=== PATIENT | male | born 1970 | race Caucasian/White ===

== ENCOUNTER 2018-03-27 06:44 | Observation (INO) ==
[2018-03-27] MEDS ORDERED: Pantoprazole 80 MG in 0.9 % Sodium Chloride 50 ML IVPB ONE (07:00)
[2018-03-27] MEDS ORDERED: 0.9 % Sodium Chloride 1,000 ML IVC ONE (07:00)
[2018-03-27] MEDS ORDERED: Ondansetron 4 MG/2 ML VIAL IVP ONE (07:04)
--- NOTE | 2018-03-27 07:05 | Emergency Department Note ---
Disposition Clinical Impression: Drop in hemoglobin Nausea and vomiting Qualifiers: Vomiting type: unspecified Vomiting Intractability: non-intractable Qualified Code(s): R11.2 - Nausea with vomiting, unspecified Abdominal pain Qualifiers: Abdominal location: unspecified location Qualified Code(s): R10.9 - Unspecified abdominal pain Hematemesis Qualifiers: Nausea presence: with nausea Qualified Code(s): K92.0 - Hematemesis GI bleed Qualifiers: GI bleed type/associated pathology: unspecified gastrointestinal hemorrhage type Qualified Code(s): K92.2 - Gastrointestinal hemorrhage, unspecified Disposition: Admitted As Inpatient Condition: Fair Referrals: Lyndsey Walls [Primary Care Provider] - Time of Disposition: 09:28 General Adult HPI - General Chief complaint: ED Nausea/Vomiting/Diarrhea Stated complaint: vomiting blood Time Seen by Provider: 03/27/18 07:00 Source: patient, EMS Mode of arrival: EMS Limitations: no limitations Nursing Notes Reviewed: Yes Vital Signs Reviewed: Yes - History of Present Illness HPI Narrative: Patient is a 47-year-old male that presents emergency Department with vomiting. Patient's been ongoing for the past 2 weeks and was previously seen here in the emergency department yesterday. Patient states that then this morning he began vomiting up blood. Patient states that he vomited up a clot and then started vomiting bright red blood. Patient states that he is having diffuse abdominal pain and has not been eating or drinking. Patient states that any touching of the belly seems to make the pain worse. Nothing really seems to alleviate the patient's pain. Patient denies any history of alcohol consumption or liver disease. Patient also reports that he has lost about 30 pounds over the past 2 weeks. Pain Scale: 9 - Related Data Home Medications Medication Instructions Recorded Confirmed Albuterol Sulfate [Ventolin Hfa] 2 puff IH Q4H PRN 03/27/18 03/27/18 Aspirin [Aspirin] 81 mg PO DAILY 03/27/18 03/27/18 Fluticasone Propionate Nasal 2 spr NS DAILY 03/27/18 03/27/18 [Flonase] Ipratropium/Albuterol Sulfate 1 puff HE QID 03/27/18 03/27/18 [Combivent Respimat 20-100 Mcg] Isosorbide MONOnitrate (24 HR) 60 mg PO DAILY 03/27/18 03/27/18 [Imdur] Lisinopril [Zestril] 20 mg PO DAILY 03/27/18 03/27/18 Metformin HCl [Metformin HCl] 1,000 mg PO BID 03/27/18 03/27/18 Metoprolol Tartrate [Metoprolol 50 mg PO BID 03/27/18 03/27/18 Tartrate] Pregabalin [Lyrica] 200 mg PO TID 03/27/18 03/27/18 Simvastatin [Zocor] 20 mg PO HS 03/27/18 03/27/18 Terazosin HCl [Terazosin HCl] 10 mg PO DAILY 03/27/18 03/27/18 Tizanidine HCl [Tizanidine HCl] 4 mg PO TID 03/27/18 03/27/18 Previous Rx's Medication Instructions Recorded Ondansetron ODT [Zofran ODT] 4 mg PO Q4H #12 tab.rapdis 03/26/18 Promethazine [Phenergan] 25 mg PO Q8HR #20 tablet 03/26/18 Allergies Allergy/AdvReac Type Severity Reaction Status Date / Time celecoxib [From Celebrex] Allergy Swelling Verified 03/27/18 10:04 of Lip/Tongue/Throat gabapentin Allergy Difficulty Verified 03/27/18 10:04 Breathing lidocaine Allergy Difficulty Verified 03/27/18 10:04 Breathing Methadone Allergy Swelling Verified 03/27/18 10:04 of Lip/Tongue/Throat tramadol Allergy Difficulty Verified 03/27/18 10:04 Breathing acetaminophen AdvReac Vomiting Verified 03/27/18 10:04 [From Tylenol-Codeine #3] codeine AdvReac Vomiting Verified 03/27/18 10:04 [From Tylenol-Codeine #3] hydrocodone [From Vicodin] AdvReac Vomiting Verified 03/27/18 10:04 ibuprofen AdvReac Vomiting Verified 03/27/18 10:04 morphine AdvReac Vomiting Verified 03/27/18 10:04 Oxycodone [From OxyContin] AdvReac Vomiting Verified 03/27/18 10:04 pregabalin [From Lyrica] AdvReac Confusion Verified 03/27/18 10:04 All systems ED: reviewed and negative except as stated. Cardiovascular: Denies: chest pain Respiratory: Denies: dyspnea Gastrointestinal: Reports: abdominal pain, nausea, vomiting, hematemesis. Denies: diarrhea, hematochezia Past Medical History - Past Medical History Medical history: Reports: COPD, myocardial infarction Psychiatric history: Reports: no psych history - Social History Smoking Status: Former smoker Smokeless Tobacco Status: No Alcohol use: Reports: none Drug use: Reports: none Physical Exam - General Limitations: no limitations General appearance: alert, in no apparent distress - Head Head exam: atraumatic, normocephalic - Eye Eye exam: Present: normal appearance, EOMI - Neck Neck exam: Present: normal inspection, full ROM, trachea midline - Respiratory Respiratory exam: Present: normal lung sounds bilaterally. Absent: respiratory distress, wheezes - Cardiovascular Cardiovascular exam: Present: regular rate, normal rhythm, normal heart sounds, +S1, +S2 - Abdominal Exam Abdominal exam: Present: soft, tenderness, guarding, normal bowel sounds, other (Abdomen is firm ). Absent: distention, rebound Abdominal tenderness: Present: diffuse, moderate - Neurological Exam Neurological exam: Present: alert, oriented X3 - Psychiatric Psychiatric exam: Present: normal affect, normal mood - Skin Skin exam: Present: warm, dry, intact Course Vital Signs Temperature 98.5 F 03/27/18 06:47 Pulse Rate 79 03/27/18 06:47 Respiratory Rate 20 03/27/18 06:47 Blood Pressure 158/97 03/27/18 06:47 O2 Sat by Pulse Oximetry 99 03/27/18 06:47 Temperature 98.5 F 03/27/18 06:47 Pulse Rate 77 03/27/18 09:45 Respiratory Rate 20 03/27/18 09:45 Blood Pressure 143/84 03/27/18 09:45 O2 Sat by Pulse Oximetry 98 03/27/18 09:45 Oxygen Delivery Oxygen Delivery Room Air Medical Decision Making - MDM Narrative Medical decision making narrative: The patient presenting to the emergency department with possible upper GI bleed and vomiting blood we will obtain CBC, BMP, type and screen, EKG patient will be given Protonix and Zofran here in the emergency department. Ct scan of the abdomen and pelvis will be obtained. CT scan showed trace fluid within the pelvis which is nonspecific but no other acute intra-abdominal pathologies identified at this time. Patient did have a 1-1/2 g drop in his hemoglobin since yesterday. Current hemoglobin is 13.6. Patient vital signs are stable while here in the emergency department. Due to the patient having reports of vomiting and the continued abdominal pain and the drop in his hemoglobin and feel it is important that the patient be admitted to the hospital for further evaluation and management. I called and spoke with the admitting hospitalist Dr. Stover and he has accepted the patient to their service. Patient be admitted to the hospital this time for further evaluation and management. - Medical Records Medical records reviewed: Yes I reviewed the patient's medical records. - Lab Data Lab results reviewed: Yes I reviewed the patient's lab results. Result diagrams: 03/27/18 07:30 03/27/18 07:30 Lab Results 03/27/18 03/27/18 03/27/18 Range/Units 07:30 07:30 07:30 WBC 8.6 (4.3-11.1) K/mcL RBC 4.51 (4.19-5.50) M/mcL Hgb 13.6 D (12.9-16.9) g/dL Hct 39.5 (37.5-50.1) % MCV 87.6 (83.0-100.0) fL MCH 30.2 (28.0-33.3) pg MCHC 34.4 (31.6-35.5) g/dL RDW 13.4 (11.5-14.5) % Plt Count 235 (140-400) K/mcL MPV 10.1 (9.4-12.4) fL Immature Gran % 0.2 (0-4) % Seg Neutrophils % 59.0 % Lymphocytes % 29.1 % Monocytes % 9.6 % Eosinophils % 1.4 % Basophils % 0.7 % Neutrophils # 5.1 (1.6-8.9) K/mcL Lymphocytes # 2.5 (0.6-4.6) K/mcL Monocytes # 0.8 (0.0-1.3) K/mcL Eosinophils # 0.1 (0.0-0.6) K/mcL Basophils # 0.1 (0.0-0.2) K/mcL PT 12.1 (9.4-12.1) Seconds INR 1.1 APTT 30.7 (26.0-36.0) Seconds Sodium 139 (136-145) mEq/L Potassium 3.2 L (3.5-5.1) mEq/L Chloride 105 (98-107) mEq/L Carbon Dioxide 25 (23-29) mEq/L BUN 10 (6-20) mg/dL Creatinine 1.00 (0.70-1.30) mg/dL Est GFR ( Amer) > 60 (> 60) Est GFR (Non-Af Amer) > 60 (> 60) BUN/Creatinine Ratio 10 (6-26) Glucose 106 H (70-105) mg/dL Calculated Osmolality 287 (280-300) Calcium 9.1 (8.6-10.3) mg/dL Total Bilirubin 0.6 (0.3-1.0) mg/dL AST 16 (13-39) Units/L ALT 12 (7-52) Units/L Alkaline Phosphatase 71 (34-104) Units/L Troponin I < 0.03 (< 0.04) ng/mL Serum Total Protein 6.3 L (6.4-8.9) g/dL Albumin 4.0 (3.5-5.7) g/dL Globulin 2.3 L (2.4-3.5) g/dL Albumin/Globulin Ratio 1.7 (1.1-2.2) Blood Type Antibody Screen 03/27/18 Range/Units 07:30 WBC (4.3-11.1) K/mcL RBC (4.19-5.50) M/mcL Hgb (12.9-16.9) g/dL Hct (37.5-50.1) % MCV (83.0-100.0) fL MCH (28.0-33.3) pg MCHC (31.6-35.5) g/dL RDW (11.5-14.5) % Plt Count (140-400) K/mcL MPV (9.4-12.4) fL Immature Gran % (0-4) % Seg Neutrophils % % Lymphocytes % % Monocytes % % Eosinophils % % Basophils % % Neutrophils # (1.6-8.9) K/mcL Lymphocytes # (0.6-4.6) K/mcL Monocytes # (0.0-1.3) K/mcL Eosinophils # (0.0-0.6) K/mcL Basophils # (0.0-0.2) K/mcL PT (9.4-12.1) Seconds INR APTT (26.0-36.0) Seconds Sodium (136-145) mEq/L Potassium (3.5-5.1) mEq/L Chloride (98-107) mEq/L Carbon Dioxide (23-29) mEq/L BUN (6-20) mg/dL Creatinine (0.70-1.30) mg/dL Est GFR ( Amer) (> 60) Est GFR (Non-Af Amer) (> 60) BUN/Creatinine Ratio (6-26) Glucose (70-105) mg/dL Calculated Osmolality (280-300) Calcium (8.6-10.3) mg/dL Total Bilirubin (0.3-1.0) mg/dL AST (13-39) Units/L ALT (7-52) Units/L Alkaline Phosphatase (34-104) Units/L Troponin I (< 0.04) ng/mL Serum Total Protein (6.4-8.9) g/dL Albumin (3.5-5.7) g/dL Globulin (2.4-3.5) g/dL Albumin/Globulin Ratio (1.1-2.2) Blood Type A NEGATIVE Antibody Screen NEGATIVE - Radiology Data Radiology results reviewed: Yes I reviewed the patient's radiology results. Abdomen/Pelvis CT 03/27/18 07:22 IMPRESSION: 1. Small amount of free fluid in the pelvis which is not expected in a male patient. This is nonspecific, but could conceivably be reactive due to underlying enteritis. 2. Otherwise, no acute abdominal or pelvic abnormality. Normal appendix. 3. Diverticulosis without associated inflammatory changes. D/ / 03/27/2018 08:43:29 Claire Roa MD / maricel Interpreting Provider: Claire Roa MD - EKG Data EKG #1 EKG attestation: Yes I reviewed and interpreted this EKG. EKG results narrative: EKG shows a sinus rhythm at a rate of 77 bpm, ND interval of 122, QRS duration 105, QTC of 452 with a normal axis. There is no evidence of STEMI on EKG. This is compared to previous EKG on 02/05/18.
--- NOTE | 2018-03-27 07:22 | Emergency Department Note ---
Disposition Clinical Impression: Nausea and vomiting, Abdominal pain, Hematemesis, Drop in hemoglobin, GI bleed Disposition: Admitted As Inpatient Condition: Fair General Adult HPI - General Chief complaint: ED Nausea/Vomiting/Diarrhea Stated complaint: vomiting blood Time Seen by Provider: 03/27/18 07:00 Source: patient, EMS Mode of arrival: EMS Limitations: no limitations - History of Present Illness Pain Scale: 9 - Related Data Home Medications Medication Instructions Recorded Confirmed Albuterol Sulfate [Ventolin Hfa] 2 puff IH Q4H PRN 03/27/18 03/27/18 Aspirin [Aspirin] 81 mg PO DAILY 03/27/18 03/27/18 Fluticasone Propionate Nasal 2 spr NS DAILY 03/27/18 03/27/18 [Flonase] Ipratropium/Albuterol Sulfate 1 puff HE QID 03/27/18 03/27/18 [Combivent Respimat 20-100 Mcg] Isosorbide MONOnitrate (24 HR) 60 mg PO DAILY 03/27/18 03/27/18 [Imdur] Lisinopril [Zestril] 20 mg PO DAILY 03/27/18 03/27/18 Metformin HCl [Metformin HCl] 1,000 mg PO BID 03/27/18 03/27/18 Metoprolol Tartrate [Metoprolol 50 mg PO BID 03/27/18 03/27/18 Tartrate] Pregabalin [Lyrica] 200 mg PO TID 03/27/18 03/27/18 Simvastatin [Zocor] 20 mg PO HS 03/27/18 03/27/18 Terazosin HCl [Terazosin HCl] 10 mg PO DAILY 03/27/18 03/27/18 Tizanidine HCl [Tizanidine HCl] 4 mg PO TID 03/27/18 03/27/18 Previous Rx's Medication Instructions Recorded Ondansetron ODT [Zofran ODT] 4 mg PO Q4H #12 tab.rapdis 03/26/18 Promethazine [Phenergan] 25 mg PO Q8HR #20 tablet 03/26/18 Allergies Allergy/AdvReac Type Severity Reaction Status Date / Time celecoxib [From Celebrex] Allergy Swelling Verified 03/27/18 10:04 of Lip/Tongue/Throat gabapentin Allergy Difficulty Verified 03/27/18 10:04 Breathing lidocaine Allergy Difficulty Verified 03/27/18 10:04 Breathing Methadone Allergy Swelling Verified 03/27/18 10:04 of Lip/Tongue/Throat tramadol Allergy Difficulty Verified 03/27/18 10:04 Breathing acetaminophen AdvReac Vomiting Verified 03/27/18 10:04 [From Tylenol-Codeine #3] codeine AdvReac Vomiting Verified 03/27/18 10:04 [From Tylenol-Codeine #3] hydrocodone [From Vicodin] AdvReac Vomiting Verified 03/27/18 10:04 ibuprofen AdvReac Vomiting Verified 03/27/18 10:04 morphine AdvReac Vomiting Verified 03/27/18 10:04 Oxycodone [From OxyContin] AdvReac Vomiting Verified 03/27/18 10:04 pregabalin [From Lyrica] AdvReac Confusion Verified 03/27/18 10:04 Cardiovascular: Denies: chest pain Respiratory: Denies: dyspnea Gastrointestinal: Reports: abdominal pain, nausea, vomiting, hematemesis. Denies: diarrhea, hematochezia Past Medical History - Past Medical History Medical history: Reports: COPD, myocardial infarction Psychiatric history: Reports: no psych history - Social History Smoking Status: Former smoker Smokeless Tobacco Status: No Alcohol use: Reports: none Drug use: Reports: none Physical Exam - General Limitations: no limitations General appearance: alert, in no apparent distress Course Vital Signs Temperature 98.5 F 03/27/18 06:47 Pulse Rate 79 03/27/18 06:47 Respiratory Rate 20 03/27/18 06:47 Blood Pressure 158/97 03/27/18 06:47 O2 Sat by Pulse Oximetry 99 03/27/18 06:47 Temperature 98.5 F 03/27/18 06:47 Pulse Rate 77 03/27/18 09:45 Respiratory Rate 20 03/27/18 09:45 Blood Pressure 143/84 03/27/18 09:45 O2 Sat by Pulse Oximetry 98 03/27/18 09:45 Oxygen Delivery Oxygen Delivery Room Air Medical Decision Making - Lab Data Result diagrams: 03/27/18 07:30 03/27/18 07:30 Lab Results 03/27/18 03/27/18 03/27/18 Range/Units 07:30 07:30 07:30 WBC 8.6 (4.3-11.1) K/mcL RBC 4.51 (4.19-5.50) M/mcL Hgb 13.6 D (12.9-16.9) g/dL Hct 39.5 (37.5-50.1) % MCV 87.6 (83.0-100.0) fL MCH 30.2 (28.0-33.3) pg MCHC 34.4 (31.6-35.5) g/dL RDW 13.4 (11.5-14.5) % Plt Count 235 (140-400) K/mcL MPV 10.1 (9.4-12.4) fL Immature Gran % 0.2 (0-4) % Seg Neutrophils % 59.0 % Lymphocytes % 29.1 % Monocytes % 9.6 % Eosinophils % 1.4 % Basophils % 0.7 % Neutrophils # 5.1 (1.6-8.9) K/mcL Lymphocytes # 2.5 (0.6-4.6) K/mcL Monocytes # 0.8 (0.0-1.3) K/mcL Eosinophils # 0.1 (0.0-0.6) K/mcL Basophils # 0.1 (0.0-0.2) K/mcL PT 12.1 (9.4-12.1) Seconds INR 1.1 APTT 30.7 (26.0-36.0) Seconds Sodium 139 (136-145) mEq/L Potassium 3.2 L (3.5-5.1) mEq/L Chloride 105 (98-107) mEq/L Carbon Dioxide 25 (23-29) mEq/L BUN 10 (6-20) mg/dL Creatinine 1.00 (0.70-1.30) mg/dL Est GFR ( Amer) > 60 (> 60) Est GFR (Non-Af Amer) > 60 (> 60) BUN/Creatinine Ratio 10 (6-26) Glucose 106 H (70-105) mg/dL Calculated Osmolality 287 (280-300) Calcium 9.1 (8.6-10.3) mg/dL Total Bilirubin 0.6 (0.3-1.0) mg/dL AST 16 (13-39) Units/L ALT 12 (7-52) Units/L Alkaline Phosphatase 71 (34-104) Units/L Troponin I < 0.03 (< 0.04) ng/mL Serum Total Protein 6.3 L (6.4-8.9) g/dL Albumin 4.0 (3.5-5.7) g/dL Globulin 2.3 L (2.4-3.5) g/dL Albumin/Globulin Ratio 1.7 (1.1-2.2) Blood Type Antibody Screen 03/27/18 Range/Units 07:30 WBC (4.3-11.1) K/mcL RBC (4.19-5.50) M/mcL Hgb (12.9-16.9) g/dL Hct (37.5-50.1) % MCV (83.0-100.0) fL MCH (28.0-33.3) pg MCHC (31.6-35.5) g/dL RDW (11.5-14.5) % Plt Count (140-400) K/mcL MPV (9.4-12.4) fL Immature Gran % (0-4) % Seg Neutrophils % % Lymphocytes % % Monocytes % % Eosinophils % % Basophils % % Neutrophils # (1.6-8.9) K/mcL Lymphocytes # (0.6-4.6) K/mcL Monocytes # (0.0-1.3) K/mcL Eosinophils # (0.0-0.6) K/mcL Basophils # (0.0-0.2) K/mcL PT (9.4-12.1) Seconds INR APTT (26.0-36.0) Seconds Sodium (136-145) mEq/L Potassium (3.5-5.1) mEq/L Chloride (98-107) mEq/L Carbon Dioxide (23-29) mEq/L BUN (6-20) mg/dL Creatinine (0.70-1.30) mg/dL Est GFR ( Amer) (> 60) Est GFR (Non-Af Amer) (> 60) BUN/Creatinine Ratio (6-26) Glucose (70-105) mg/dL Calculated Osmolality (280-300) Calcium (8.6-10.3) mg/dL Total Bilirubin (0.3-1.0) mg/dL AST (13-39) Units/L ALT (7-52) Units/L Alkaline Phosphatase (34-104) Units/L Troponin I (< 0.04) ng/mL Serum Total Protein (6.4-8.9) g/dL Albumin (3.5-5.7) g/dL Globulin (2.4-3.5) g/dL Albumin/Globulin Ratio (1.1-2.2) Blood Type A NEGATIVE Antibody Screen NEGATIVE Attestation Statement - Attestation Attestation: I examined this patient and my medical decision-making was reviewed with the Resident Physician. I agree with the documented findings, disposition and treatment plan as described except to the extent set forth below. Patient presents to the ED with chief complaint of vomiting blood. Patient vomited a clot followed by bright red blood. He has been having problems with persistent vomiting for the past couple weeks. No history of similar. Was seen here yesterday and had a negative workup including labs and a CTA. He has continued to vomit. On examination he has upper abdominal tenderness and guarding. Plan. Reviewed his normal labs from yesterday. His CT is negative for any vascular pathology. Is having persistent, worsening symptoms. His symptoms seem epigastric. We will repeat CT as we have concern for a referral to gastric ulcer. Meds fluids and reevaluate. Patient with no further vomiting. He was dropped a gram and a half since yesterday. He is given IV Protonix. Will admit.
[2018-03-27] MEDS ORDERED: *HR* FentaNYL (PF) 100 MCG/2 ML VIAL IVP ONE ×2 (07:39→17:34)
[2018-03-27 07:55] LABS: Basophils # 0.1 K/mcL (0.0-0.2); Basophils % 0.7 %; Eosinophils # 0.1 K/mcL (0.0-0.6); Eosinophils % 1.4 %; Hematocrit 39.5 % (37.5-50.1); Hemoglobin 13.6 g/dL (12.9-16.9); Immature Granulocytes % 0.2 % (0-4); Lymphocytes # 2.5 K/mcL (0.6-4.6); Lymphocytes % 29.1 %; Mean Corpuscular HGB Conc 34.4 g/dL (31.6-35.5); Mean Corpuscular Hemoglobin 30.2 pg (28.0-33.3); Mean Corpuscular Volume 87.6 fL (83.0-100.0); Mean Platelet Volume 10.1 fL (9.4-12.4); Monocytes # 0.8 K/mcL (0.0-1.3); Monocytes % 9.6 %; Neutrophils # 5.1 K/mcL (1.6-8.9); Platelet Count 235 K/mcL (140-400); Red Blood Count 4.51 M/mcL (4.19-5.50); Red Cell Distribution Width 13.4 % (11.5-14.5)
[2018-03-27 07:58] LABS: Alanine Aminotransferase 12 Units/L (7-52); Albumin/Globulin Ratio 1.7 (1.1-2.2); Alkaline Phosphatase 71 Units/L (34-104); Aspartate Amino Transferase 16 Units/L (13-39); BUN/Creatinine Ratio 10 (6-26); Bilirubin,Total 0.6 mg/dL (0.3-1.0); Blood Urea Nitrogen 10 mg/dL (6-20); Calcium 9.1 mg/dL (8.6-10.3); Carbon Dioxide 25 mEq/L (23-29); Chloride 105 mEq/L (98-107); Globulin 2.3 g/dL (2.4-3.5); Glucose 106 mg/dL (70-105); Osmolality,Calculated 287 (280-300); Potassium 3.2 mEq/L (3.5-5.1); Sodium 139 mEq/L (136-145); Total Protein 6.3 g/dL (6.4-8.9); eGFR For Non-African Americans > 60 (> 60)
[2018-03-27 08:05] LABS: INR 1.1; Prothrombin Time 12.1 Seconds (9.4-12.1); Troponin I < 0.03 ng/mL (< 0.04)
[2018-03-27 08:07] LABS: Activated Partial Thrombo Time 30.7 Seconds (26.0-36.0)
[2018-03-27] MEDS ORDERED: Naloxone 0.4 MG/ML INJ IVP PRN (10:21)
--- NOTE | 2018-03-27 10:54 | Internal Med History&Physical ---
Date of Encounter: 03/27/18 Time of Encounter: 10:49 Internal Medicine - H&P: HPI Chief complaint: Vomiting of blood Admitted From: Home Plans for Post Hospital Care: Home History of present illness: Mr. Alcantara is a 47 year old male with a past medical history of coronary artery disease, multiple MIs in the past last one being last year, history of stroke in 2013 with residual left-sided weakness in upper and lower extremities, ex- smoker who smoked 30 pack years from age 16 until age 47. Who presents with 2 weeks of nausea and vomiting and inability to keep anything down and more so having 2 episodes of upper GI bleed since yesterday. Patient states that his symptoms started roughly about 2 weeks ago and were not preceded by any sick contacts. He feels that he had a accidental fall about 3 days prior to all of the starting he is not sure if he hit his head at that point. He states he has many seizure episodes and this was during one of his seizure event that he was not able to hold onto a rail and fell backwards hitting his head. He is not sure that he ever got a head CT done but he denies getting any worsening headaches, new visual changes, new weakness or tingling or numbness in any part of his body. He does have an old stroke and residual deficits are nothing new neurologically has happened in the last 2 weeks. He denies any dark stools over the last 2-3 weeks but does have persistent nausea and vomiting. He has not been able to keep anything down and has lost about 30 pounds according to his history over the last 3 weeks time. He was incidentally seen in the ER 2 days ago but has not had resolution of his symptoms. He states that he was prescribed Zofran which has only helped partially and as soon as the effect wears off he starts throwing up again. Yesterday he had one clot that he vomited towards the end of the night and then this morning had some fresh bleeding when he tried to vomit. No associated diarrhea or constipation. Denies any fevers or chills and no chest pain or shortness of breath. He is being placed into observation status for further evaluation of his upper GI bleed. Past Med Surg Social Fam HX - Past Medical History Medical history: COPD, myocardial infarction Psychiatric history: no psych history - Past Surgical History Additional surgical history: facial reconstruction, removal of crushed rt testicle - Social History Smoking Status: Former smoker (Patient has a [id number] smoking history quit 3 weeks ago) Smokeless Tobacco Status: No Alcohol use: none Drug use: none - Additional Family History Additional family history: He is adopted and does not know his family history in detail. Internal Medicine - H&P: Meds Ondansetron ODT [Zofran ODT] 4 mg PO Q4H #12 tab.rapdis 03/26/18 [Rx] Promethazine [Phenergan] 25 mg PO Q8HR #20 tablet 03/26/18 [Rx] Albuterol Sulfate [Ventolin Hfa] 2 puff IH Q4H PRN 03/27/18 [History] Aspirin [Aspirin] 81 mg PO DAILY 03/27/18 [History] Fluticasone Propionate Nasal [Flonase] 2 spr NS DAILY 03/27/18 [History] Ipratropium/Albuterol Sulfate [Combivent Respimat 20-100 Mcg] 1 puff HE QID [History] Isosorbide MONOnitrate (24 HR) [Imdur] 60 mg PO DAILY 03/27/18 [History] Lisinopril [Zestril] 20 mg PO DAILY 03/27/18 [History] Metformin HCl [Metformin HCl] 1,000 mg PO BID 03/27/18 [History] Metoprolol Tartrate [Metoprolol Tartrate] 50 mg PO BID 03/27/18 [History] Pregabalin [Lyrica] 200 mg PO TID 03/27/18 [History] Simvastatin [Zocor] 20 mg PO HS 03/27/18 [History] Terazosin HCl [Terazosin HCl] 10 mg PO DAILY 03/27/18 [History] Tizanidine HCl [Tizanidine HCl] 4 mg PO TID 03/27/18 [History] 3 Allergy/AdvReac Type Severity Reaction Status Date / Time celecoxib [From Celebrex] Allergy Swelling Verified 03/27/18 10:04 of Lip/Tongue/Throat gabapentin Allergy Difficulty Verified 03/27/18 10:04 Breathing lidocaine Allergy Difficulty Verified 03/27/18 10:04 Breathing Methadone Allergy Swelling Verified 03/27/18 10:04 of Lip/Tongue/Throat tramadol Allergy Difficulty Verified 03/27/18 10:04 Breathing acetaminophen AdvReac Vomiting Verified 03/27/18 10:04 [From Tylenol-Codeine #3] codeine AdvReac Vomiting Verified 03/27/18 10:04 [From Tylenol-Codeine #3] hydrocodone [From Vicodin] AdvReac Vomiting Verified 03/27/18 10:04 ibuprofen AdvReac Vomiting Verified 03/27/18 10:04 morphine AdvReac Vomiting Verified 03/27/18 10:04 Oxycodone [From OxyContin] AdvReac Vomiting Verified 03/27/18 10:04 pregabalin [From Lyrica] AdvReac Confusion Verified 03/27/18 10:04 All Systems PM: A 10-system review of systems was performed and is negative for pertinent findings except as documented above in the HPI. - Constitutional Vitals: Temp Pulse Resp BP Pulse Ox 98.5 F 77 20 143/84 98 03/27/18 06:47 03/27/18 09:45 03/27/18 09:45 03/27/18 09:45 03/27/18 09:45 Exam: GENERAL: Alert, no distress, cooperative EYES: Strabismus, PERRLA, EOMI EARS: External ears normal, canals clear OROPHARYNX: Lips, mucosa, and tongue normal. Teeth and gums normal. Oropharynx normal. NECK: No jugulovenous distention, No carotid bruits, Carotid pulse normal contour, Supple LUNGS: Lungs clear to auscultation, Good diaphragmatic excursion CARDIAC: Normal S1 and S2; no rubs, murmurs, or gallops ABDOMEN: Abdomen soft, mild tenderness to palpation diffusely but no guarding or rigidity, BS normal, No masses or organomegaly EXTREMITIES: Extremities normal, no deformities, edema, clubbing or skin discoloration. Good capillary refill., No ulcers NEURO: Weakness in the left upper and lower extremity. Power was 3/5 in both upper and lower left extremities power is 5 x 5 in the right upper and lower extremity PULSES: 2+ radial, 2+ carotid Rest of the exam is non contributory Internal Med - H&P Results - Labs CBC & Chem 7: 03/27/18 07:30 03/27/18 07:30 - EKG Data Prior EKG available for review: no Interpretation IM: normal EKG EKG comments: 03/27/18 10:56 Reviewed by me - Assessment and plan (1) GI bleed Current Visit: Yes Status: Acute Assessment and plan: Patient presents with vomiting up clots as well as fresh blood at the tail end of a two-week nausea vomiting phase. Differential diagnoses includes Bianca-Guardado tear, peptic ulcer disease, GERD versus a upper GI malignancy given he has had significant weight loss Patient also fell about 3 days preceding to the start of his symptoms and that does raise concern for an intracranial increase of pressure which could preclude nonstop vomiting-however on clinical examination he does not have any worsening neuro deficits, on history he does not complain of headaches or visual symptoms, he does have some old neurological deficits which are not new and has met threshold to pursue this diagnosis is higher. He has already received a bolus of Protonix in the ER. I will continue twice a day IV PPI and keep the patient nothing by mouth. He will be placed on telemetry monitoring and we will check serial H&H. He will be taken down for endoscopy very soon because of already discussed it with the consulting psychiatrist on-call Endoscopy today and for the results to follow. If endoscopy is not suggestive we may consider doing a head CT Hemodynamically right now he appears stable and we will continue to monitor closely Plan discussed with the nursing and pharmacy in detail Qualifiers: GI bleed type/associated pathology: gastrointestinal hemorrhage with hematemesis Qualified Code(s): K92.0 - Hematemesis (2) History of coronary artery disease Current Visit: Yes Status: Acute Assessment and plan: Patient used to be on aspirin which he has been taking every single day. I will hold the aspirin for now and continue the rest of his home medications. Waiting for pharmacy to reconcile (3) Nausea and vomiting Current Visit: Yes Status: Acute Assessment and plan: Continue Zofran every 6 hours IV when necessary for nausea and vomiting. For now he will be nothing by mouth but will resume his diet once he has had a scope Qualifiers: Vomiting type: unspecified Vomiting Intractability: intractable Qualified Code(s): R11.2 - Nausea with vomiting, unspecified (4) DVT prophylaxis Current Visit: Yes Status: Acute Assessment and plan: EPCD in place - Time Spent With Patient Total time spent is greater than 50% in coordination of care (as documented) at patient's floor/unit and/or counseling patient: Greater than 35 minutes
--- NOTE | 2018-03-27 11:20 | Gastroenterology Consult Note ---
<Leo Holt - Last Filed: 03/27/18 11:46> Date of Encounter: 03/27/18 Time of Encounter: 11:15 - Assessment and plan (1) Abdominal pain Current Visit: Yes Status: Acute Assessment and plan: Likely secondary to wretching secondary to likely viral gastritis - Less likely etiologies of esophageal stricture, adhesions given multiple abdomen surgeries, mass, AAA or perforation unlikely given CT scan. - CT scan performed in emergency room shows free fluid in the pelvis which is abnormal however may be associated with enteritis. Otherwise unremarkable. - Diffusely tender on exam with voluntary guarding. - Sharp nature and exacerbation with movement and wretching point to possible facial component and inflammation. - Associated nausea and vomiting as below. Hematemasis as below. - Weight loss possibly secondary to decreased oral intake, however cannot rule out malignancy contribution. Plan - Supportive care per primary team with pain control and anti-emetics - EGD scheduled for this afternoon - IVF while patient is NPO - Further recommendations pending results of EGD - Further discussion with Dr. Jolley Qualifiers: Abdominal location: generalized Qualified Code(s): R10.84 - Generalized abdominal pain (2) Nausea and vomiting Current Visit: Yes Status: Acute Assessment and plan: - Possible etiologies include most likely viral gastritis vs gastroparesis vs mass effect - hematemasis is likely secondary to casey ayala given history of vomiting and wretching as per HPI - patient reports resolution of symptoms since presenting to ED with administration of Zofran - Afebrile, no WBC elevation on presentation. Non septic presentation Plan - Continue supportive care with antiemetics - Will plan for EGD this afternoon for diagnostic purposes Qualifiers: Vomiting type: unspecified Vomiting Intractability: intractable Qualified Code(s): R11.2 - Nausea with vomiting, unspecified (3) Hematemesis Current Visit: Yes Status: Acute Assessment and plan: - As above - likely secondary to casey ayala tear - No evidence of free air on CT - H/H stable at 13.6/39.5, coagulation studies wnl. Hgb of 15.1 yesterday at ED visit. - No reported melena or hematochezia - Started this morning. hemodynamically stable. - No further episodes of vomiting since presentation. Plan - Plan for EGD this afternoon - Patient reports not having eat in 3 days - Continue to monitor for signs of further bleed. Qualifiers: Nausea presence: with nausea Qualified Code(s): K92.0 - Hematemesis (4) GI bleed Current Visit: Yes Status: Acute Assessment and plan: - As above, likely secondary to casey ayala - Denies previous episodes of bleeding. - Takes home aspirin but hasn't been able to keep medications down in 2 days - History of multiple VA and CVA. Benefits outweigh risk after bleed under control. Unlikely contributing to bleed. - H/H stable, continue to monitor. Qualifiers: GI bleed type/associated pathology: gastrointestinal hemorrhage with hematemesis Qualified Code(s): K92.0 - Hematemesis - Time Spent With Patient Total time spent is greater than 50% in coordination of care (as documented) at patient's floor/unit and/or counseling patient: GI History of Present Illness - Data of Consult Consult date: 03/27/18 Requesting Physician: Rayray Stover MD - Consult Narrative Reason for consult: GI bleed, n/v History of present illness: Mr. Alcantara is a 47 year old male with past medical history of COPD, CAD with myocardial infarction 5, CVA presents to emergency room with complaint of nausea and vomiting 3 weeks. Patient states it was sudden onset and he has been continuously retching over this time period. Emesis contains food contents initially but now as he has been unable to keep down any food, it is turned in a dry retching. He also reports hematemesis starting this morning while retching. He states that approximately he has vomited one cup of blood during this time. Also admits to associated medially located abdominal pain extending from the epigastric suprapubic region. This pain does not move and he describes it as sharp in nature with knives. He states the pain is present constantly and is exacerbated with retching and deep breaths with no relieving factors except for absence of vomiting and no movement. He denies any symptoms of fevers, chills, sick contacts, chest pain, shortness of breath. He states his last bowel movement was over a week ago which she associates with decreased oral intake but it was normal at that time without any evidence of melena or hematochezia. He has never experienced any episodes like this in the past. He denies any previous colonoscopies or EGDs. He also reports a 30 pound weight loss in the last 3 weeks however does admit that he has not been eating in that time. Also admits to weakness and dizziness exacerbated with rising which she also associates with decreased oral intake. Past medical history as above with COPD, CAD, CVA Past surgical history significant for 13 abdominal surgeries over the period of 6 years in the early s secondary to trauma in the [employer]. Social history includes former smoker having quit one month ago. Previously one pack per day 30 years. Denies alcohol use or recreational drugs Family history unknown to patient as he is adopted. Workup thus far on presentation includes significant lab results of hypokalemia at 3.2, labs otherwise within normal limits. Vital signs significant for mild hypertension in the 150s over 90s. Abdominal CT scan performed in emergency department shows trace amount of pelvic free fluid which may be associated with gastritis, remainder of imaging is unremarkable. Gastroenterology was consulted for suspicion of GI bleed and possible need for EGD. Past Med Surg Social Fam HX - Past Medical History Medical history: COPD, myocardial infarction Psychiatric history: no psych history - Past Surgical History Additional surgical history: facial reconstruction, removal of crushed rt testicle - Social History Smoking Status: Former smoker (Patient has a [id number] smoking history quit 3 weeks ago) Smokeless Tobacco Status: No Alcohol use: none Drug use: none - Gastrointestinal Gastrointestinal: Present: abdominal pain, dyspepsia, hematemesis, nausea, vomiting. Absent: bloating, change in bowel habits, coffee ground emesis, constipation, diarrhea, heartburn, hematochezia, melena - Constitutional Constitutional: anorexia, weight loss, no fever(s) - Cardiovascular Cardiovascular ROS: Absent: chest pain, irregular heart rhythm - Respiratory Respiratory IM: Absent: cough, dyspnea - Neurological ROS Neurological GI: Present: dizziness, weakness - Integumentary Integumentary GI: Absent: jaundice, rash - Constitutional Vitals: Temp Pulse Resp BP Pulse Ox 98.5 F 77 20 143/84 98 03/27/18 06:47 03/27/18 09:45 03/27/18 09:45 03/27/18 09:45 03/27/18 09:45 Exam: Gen.: Vitals noted. No acute distress. AAOx3. Resting comfortably in bed at time of exam HEENT: PERRL/EOMI, oropharynx clear, Normocephalic, atraumatic, MMM Cardiac: RRR, no murmur, +S1/S2 Pulmonary: CTA bilaterally, no wheezes, rales or rhonchi, equal chest expansion. Decreased breath sounds at bases, moderately diminished inspiratory effort secondary to pain. Abdomen: Firm, diffusely tender, BS noted, voluntary guarding present, no rebound. MSK: ROM intact, no joint swelling noted Extremities: no BLE edema, nontender calf, no cyanosis or clubbing Neuro: A&Ox3, moves all extremities, no focal deficits Psych: Appropriate mood and behavior Results - Labs CBC & Chem 7: 03/27/18 07:30 03/27/18 07:30 Labs: Last Result Calcium 9.1 mg/dL (8.6-10.3) 03/27/18 07:30 Troponin I < 0.03 ng/mL (< 0.04) 03/27/18 07:30 Entire Visit Hgb 13.6 g/dL (12.9-16.9) D 03/27/18 07:30 Hct 39.5 % (37.5-50.1) 03/27/18 07:30 PT 12.1 Seconds (9.4-12.1) 03/27/18 07:30 Total Bilirubin 0.6 mg/dL (0.3-1.0) 03/27/18 07:30 AST 16 Units/L (13-39) 03/27/18 07:30 ALT 12 Units/L (7-52) 03/27/18 07:30 - ABG ABG results: PT/INR, D-dimer PT 12.1 Seconds (9.4-12.1) 03/27/18 07:30 Consult Discharge Plan - Plan Referrals: Lyndsey Walls [Primary Care Provider] - <Sheldon Jolley - Last Filed: 03/28/18 05:24> Date of Encounter: 03/27/18 - Time Spent With Patient Total time spent is greater than 50% in coordination of care (as documented) at patient's floor/unit and/or counseling patient: GI History of Present Illness - Data of Consult Requesting Physician: Rayray Stover MD - Consult Narrative History of present illness: Mr. Alcantara is a 47 year old male - Constitutional Vitals: Temp Pulse Resp BP Pulse Ox 98.7 F 86 18 125/78 97 03/28/18 04:32 03/28/18 04:32 03/28/18 04:32 03/28/18 04:32 03/28/18 04:32 Results - Labs CBC & Chem 7: 03/27/18 22:45 03/27/18 07:30 Labs: Last Result Calcium 9.1 mg/dL (8.6-10.3) 03/27/18 07:30 Troponin I < 0.03 ng/mL (< 0.04) 03/27/18 07:30 Entire Visit Hgb 12.6 g/dL (12.9-16.9) L 03/27/18 22:45 Hct 36.3 % (37.5-50.1) L 03/27/18 22:45 PT 12.1 Seconds (9.4-12.1) 03/27/18 07:30 Total Bilirubin 0.6 mg/dL (0.3-1.0) 03/27/18 07:30 AST 16 Units/L (13-39) 03/27/18 07:30 ALT 12 Units/L (7-52) 03/27/18 07:30 - ABG ABG results: PT/INR, D-dimer PT 12.1 Seconds (9.4-12.1) 03/27/18 07:30 - Attending Attestation Called by Dr Joel to evaluate episodes of hemetemesis. Profound weight loss unexplained. Plan EGD today I examined this patient and my medical decision-making was reviewed with the Resident Physician. I agree with the documented findings, disposition and treatment plan as described except to the extent set forth below.
[2018-03-27 11:48] LABS: Hematocrit 37.7 % (37.5-50.1); Hemoglobin 13.1 g/dL (12.9-16.9)
[2018-03-27] MEDS: *HR* FentaNYL (PF) 100 MCG/2 ML VIAL IVP PRN ×2 (13:42→20:57)
[2018-03-27] MEDS: 0.9 % Sodium Chloride 1,000 ML IVC SCH (13:45)
[2018-03-27] MEDS: Ipratropium/Albuterol Neb 3 ML IH SCH ×2 (16:02→22:10)
[2018-03-27] MEDS ORDERED: *HR* Midazolam HCl 5 MG/5 ML VIAL IVP ONE ×2 (17:02→17:34)
[2018-03-27] MEDS ORDERED: *HR* FentaNYL (PF) 100 MCG/2 ML VIAL ONE (17:03)
[2018-03-27] MEDS ORDERED: *HR* Promethazine 25 MG/ML VIAL ONE (17:31)
[2018-03-27] MEDS ORDERED: Tetracaine/Benzocaine/Butamben 200MG/SPRAY (100SPY/BOT) MM ONE (17:34)
[2018-03-27] MEDS ORDERED: *HR* Promethazine 25 MG/ML VIAL IVP ONE (17:56)
[2018-03-27 18:29] LABS: Hematocrit 37.6 % (37.5-50.1); Hemoglobin 13.6 g/dL (12.9-16.9)
[2018-03-27] MEDS: Pantoprazole 40 MG VIAL IVP SCH (19:03)
[2018-03-27] MEDS: Ondansetron 4 MG/2 ML VIAL IVP PRN (19:03)
--- NOTE | 2018-03-27 21:09 | Electrocardiograph Report ---
[facility] [employer] Test Date: 2018-03-27 Pat Name: Vaughn Alcantara Department: 104 Room: [facility] Gender: M Track Fitter: [facility] : 1970 Requested By: Doron Gonzalez Order Number: [id number] Reading MD: Omar Gonzalez Measurements Intervals Dale Rate: 77 P: 262 MA: 122 QRS: 85 QRSD: 105 T: 0 QT: 420 QTc: 452 Interpretive Statements JUNCTIONAL RHYTHM LATERAL MYOCARDIAL INFARCTION Electronically Signed On 03-27-2018 21:07:33 EDT by Omar Gonzalez
[2018-03-27 22:55] LABS: Hematocrit 36.3 % (37.5-50.1); Hemoglobin 12.6 g/dL (12.9-16.9)
[2018-03-28] MEDS: 0.9 % Sodium Chloride 1,000 ML IVC SCH ×3 (01:35→22:07)
[2018-03-28] MEDS ORDERED: *HR* FentaNYL (PF) 100 MCG/2 ML VIAL IVP ONE (02:28)
[2018-03-28] MEDS: Ipratropium/Albuterol Neb 3 ML IH SCH ×4 (03:57→21:38)
[2018-03-28] MEDS: Pantoprazole 40 MG VIAL IVP SCH (06:38)
[2018-03-28] MEDS ORDERED: Fluticasone Propionate Nasal 50 MCG/SPRAY BOTTLE NS SCH (09:00)
[2018-03-28] MEDS ORDERED: Lisinopril 20 MG TABLET PO SCH (09:00)
[2018-03-28] MEDS ORDERED: Isosorbide MONOnitrate (24 HR) 60 MG TAB.ER.24H PO SCH (09:00)
[2018-03-28] MEDS: Ondansetron 4 MG/2 ML VIAL IVP PRN (09:39)
--- NOTE | 2018-03-28 11:24 | Internal Med Progress Note ---
Date of Encounter: 03/28/18 - Assessment and plan (1) Nausea and vomiting Current Visit: Yes Status: Acute Qualifiers: Vomiting type: unspecified Vomiting Intractability: intractable Qualified Code(s): R11.2 - Nausea with vomiting, unspecified (2) Abdominal pain Current Visit: Yes Status: Acute Qualifiers: Abdominal location: generalized Qualified Code(s): R10.84 - Generalized abdominal pain (3) Hematemesis Current Visit: Yes Status: Acute Qualifiers: Nausea presence: with nausea Qualified Code(s): K92.0 - Hematemesis (4) GI bleed Current Visit: Yes Status: Acute Qualifiers: GI bleed type/associated pathology: gastrointestinal hemorrhage with hematemesis Qualified Code(s): K92.0 - Hematemesis - Time Spent With Patient Total time spent is greater than 50% in coordination of care (as documented) at patient's floor/unit and/or counseling patient: - Constitutional Vitals: Temp Pulse Resp BP Pulse Ox 99.2 F 74 18 150/90 97 03/28/18 07:25 03/28/18 07:25 03/28/18 10:58 03/28/18 07:25 03/28/18 10:58 Internal Medicine: Result - Labs CBC & Chem 7: 03/27/18 22:45 03/27/18 07:30 Labs: Short CBC 03/27/18 03/27/18 03/27/18 Range/Units 11:21 18:22 22:45 Hgb 13.1 13.6 12.6 L (12.9-16.9) g/dL Hct 37.7 37.6 36.3 L (37.5-50.1) % - ABG Interpretation ABG results: PT/INR, D-dimer PT 12.1 Seconds (9.4-12.1) 03/27/18 07:30 Consult Discharge Plan - Plan Referrals: Lyndsey Walls [Primary Care Provider] -
[2018-03-28] MEDS: OXYCODONE Oral CONC 10 MG/0.5 ML ORAL.SYG SL PRN ×2 (12:25→17:49)
--- NOTE | 2018-03-28 15:53 | Internal Med Progress Note ---
Date of Encounter: 03/28/18 Time of Encounter: 15:51 - Assessment and plan (1) GI bleed Current Visit: Yes Status: Acute Assessment and plan: Improving. Blood counts have remained stable. GI plans to do colonoscopy tomorrow due to underlying weight loss. Qualifiers: GI bleed type/associated pathology: gastrointestinal hemorrhage with hematemesis Qualified Code(s): K92.0 - Hematemesis (2) Gastritis Current Visit: Yes Status: Acute Assessment and plan: Acute gastritis with recent episodes of hematemesis. Underwent upper GI endoscopy yesterday. No active bleeding. Currently on PPI. Pain control. Symptomatic treatment. Continue antiemetics as needed. Qualifiers: Gastritis type: other gastritis Chronicity: acute Gastritis bleeding: with bleeding Qualified Code(s): K29.01 - Acute gastritis with bleeding (3) Nausea and vomiting Current Visit: Yes Status: Acute Assessment and plan: Improved today. However patient has not been able to eat much. We will continue supportive care. Monitor vital signs closely. Continue antiemetics as needed. Qualifiers: Vomiting type: unspecified Vomiting Intractability: intractable Qualified Code(s): R11.2 - Nausea with vomiting, unspecified (4) Abdominal pain Current Visit: Yes Status: Acute Assessment and plan: Due to acute gastritis. Symptomatic treatment. Pain control with narcotic medications. High risk for complications. Qualifiers: Abdominal location: epigastric Qualified Code(s): R10.13 - Epigastric pain (5) Hematemesis Current Visit: Yes Status: Acute Assessment and plan: Appears to be improving. Patient has not had any new episodes today. We will continue TO monitor blood counts. Qualifiers: Nausea presence: with nausea Qualified Code(s): K92.0 - Hematemesis - Time Spent With Patient Total time spent is greater than 50% in coordination of care (as documented) at patient's floor/unit and/or counseling patient: - Subjective Interval history: Patient evaluated earlier today. Continues to have significant abdominal pain. Attempted to eat breakfast this morning with clear liquid diet but developed intense pain soon afterwards. Has not had any episodes of emesis so far today. - Constitutional Vitals: Temp Pulse Resp BP Pulse Ox 98.3 F 62 18 119/74 99 03/28/18 11:28 03/28/18 11:28 03/28/18 11:28 03/28/18 11:28 03/28/18 11:28 General appearance: Present: cooperative, A&O X 3, answers questions appropriately - Respiratory Respiratory exam: Present: CTAB. Absent: accessory muscle use, rales, rhonchi, wheezes - Cardiovascular Cardiovascular exam: Present: RRR, +S1, +S2. Absent: diastolic murmur, gallop, rubs, systolic murmur - GI/Abdominal GI/Abdominal exam: Present: normal bowel sounds, soft, no peritoneal signs. Absent: distended, tenderness - Extremities Exam Extremities exam: Present: warm, radial pulses palpable and symmetrical. Absent : calf tenderness, cyanotic, pedal edema - Neurological Exam Neurological exam: Present: CN II-XII intact, oriented X3, no focal deficits. Absent: facial droop, speech deficit Internal Medicine: Result - Labs CBC & Chem 7: 03/27/18 22:45 03/27/18 07:30 Labs: Short CBC 03/27/18 03/27/18 Range/Units 18:22 22:45 Hgb 13.6 12.6 L (12.9-16.9) g/dL Hct 37.6 36.3 L (37.5-50.1) % - ABG Interpretation ABG results: PT/INR, D-dimer PT 12.1 Seconds (9.4-12.1) 03/27/18 07:30 Consult Discharge Plan - Plan Referrals: Lyndsey Walls [Primary Care Provider] -
[2018-03-28] MEDS ORDERED: SODIUM CHLORIDE/NAHCO3/KCL/PEG 4,000 ML SOLN.RECON PO ONE ×2 (16:00→17:00)
[2018-03-29] MEDS: OXYCODONE Oral CONC 10 MG/0.5 ML ORAL.SYG SL PRN ×2 (00:46→06:54)
[2018-03-29] MEDS: Ipratropium/Albuterol Neb 3 ML IH SCH (04:01)
[2018-03-29] MEDS ORDERED: tiZANidine 4 MG TABLET PO STA (04:58)
[2018-03-29 05:34] LABS: Basophils # 0.1 K/mcL (0.0-0.2); Basophils % 0.6 %; Eosinophils # 0.3 K/mcL (0.0-0.6); Eosinophils % 4.3 %; Hemoglobin 11.9 g/dL (12.9-16.9); Immature Granulocytes % 0.1 % (0-4); Lymphocytes # 3.3 K/mcL (0.6-4.6); Lymphocytes % 41.3 %; Mean Corpuscular Hemoglobin 30.5 pg (28.0-33.3); Mean Corpuscular Volume 89.7 fL (83.0-100.0); Mean Platelet Volume 10.4 fL (9.4-12.4); Monocytes # 0.8 K/mcL (0.0-1.3); Monocytes % 10.3 %; Neutrophils # 3.5 K/mcL (1.6-8.9); Platelet Count 211 K/mcL (140-400); Red Cell Distribution Width 13.3 % (11.5-14.5); Segmented Neutrophils % 43.4 %
[2018-03-29 05:52] LABS: BUN/Creatinine Ratio 9 (6-26); Blood Urea Nitrogen 8 mg/dL (6-20); Calcium 8.9 mg/dL (8.6-10.3); Carbon Dioxide 26 mEq/L (23-29); Chloride 109 mEq/L (98-107); Glucose 96 mg/dL (70-105); Osmolality,Calculated 290 (280-300); Potassium 3.4 mEq/L (3.5-5.1); Sodium 141 mEq/L (136-145); eGFR For Non-African Americans > 60 (> 60)
[2018-03-29] MEDS ORDERED: Dexamethasone 4 MG/ML VIAL ONE (06:45)
[2018-03-29] MEDS ORDERED: Ondansetron 4 MG/2 ML VIAL ONE (06:45)
[2018-03-29] MEDS ORDERED: *HR* Propofol 200 MG/20 ML VIAL IVP ONE ×2 (07:14→07:46)
[2018-03-29] MEDS ORDERED: Lidocaine -MPF 2% 2 ML VIAL ONE (07:14)
[2018-03-29 07:53] VITALS: BP 142/89
--- NOTE | 2018-03-29 07:59 | Anesthesia Evaluation PreOp ---
Date of Encounter: 03/29/18 Time of Encounter: 08:00 - Past History Planned Operation: Colonoscopy Cardiac History: SC (last one last year treated with ntg, beta allison), HTN, Hyperlipidemia Pulmonary History: Former smoker GUNNERY/ORDNANCE OFFICER History: CVA (residual left sided weakness) Other Medical History: Denies Any Significant HX Anesthesia History: No Prior Anesthetic Complications Alcohol Use: none Drug use: none Medications and Allergies Albuterol Sulfate [Ventolin Hfa] 2 puff IH Q4H PRN 03/27/18 [History] Aspirin [Aspirin] 81 mg PO DAILY 03/27/18 [History] Fluticasone Propionate Nasal [Flonase] 2 spr NS DAILY 03/27/18 [History] Ipratropium/Albuterol Sulfate [Combivent Respimat 20-100 Mcg] 1 puff PO QID [History] Isosorbide MONOnitrate (24 HR) [Imdur] 60 mg PO DAILY 03/27/18 [History] Lisinopril [Zestril] 20 mg PO DAILY 03/27/18 [History] Metformin HCl [Metformin HCl] 500 mg PO DAILY 03/27/18 [History] Metoprolol Tartrate [Metoprolol Tartrate] 50 mg PO BID 03/27/18 [History] Pregabalin [Lyrica] 200 mg PO TID 03/27/18 [History] Simvastatin [Zocor] 20 mg PO HS 03/27/18 [History] Terazosin HCl [Terazosin HCl] 10 mg PO HS 03/27/18 [History] Tizanidine HCl [Tizanidine HCl] 6 mg PO TID 03/27/18 [History] 3 Allergy/AdvReac Type Severity Reaction Status Date / Time celecoxib [From Celebrex] Allergy Swelling Verified 03/27/18 10:04 of Lip/Tongue/Throat gabapentin Allergy Difficulty Verified 03/27/18 10:04 Breathing lidocaine Allergy Difficulty Verified 03/27/18 10:04 Breathing Methadone Allergy Swelling Verified 03/27/18 10:04 of Lip/Tongue/Throat tramadol Allergy Difficulty Verified 03/27/18 10:04 Breathing acetaminophen AdvReac Vomiting Verified 03/27/18 10:04 [From Tylenol-Codeine #3] codeine AdvReac Vomiting Verified 03/27/18 10:04 [From Tylenol-Codeine #3] hydrocodone [From Vicodin] AdvReac Vomiting Verified 03/27/18 10:04 ibuprofen AdvReac Vomiting Verified 03/27/18 10:04 morphine AdvReac Vomiting Verified 03/27/18 10:04 Oxycodone [From OxyContin] AdvReac Vomiting Verified 03/27/18 10:04 pregabalin [From Lyrica] AdvReac Confusion Verified 03/27/18 10:04 - Meds/Allergy Pre-op Review Medications Reviewed: Yes Allergies Reviewed: Yes Beta Blockers on Current Med List: Yes (Metoprolol yesterday 2199) Anesthesia Results - Labs 03/29/18 04:55 03/29/18 04:55 Anesthesia Exam Vital Signs/O2 Sat/Glucose, Most Current Temp Pulse Resp BP Pulse Ox 03/29/18 07:51 98.1 F 57 16 142/89 98 03/29/18 04:40 98.1 F 64 17 132/81 94 Height: 5'7 Weight: 115 lbs NPO (# of Hours): MN Pain Scale: 0 - HEENT Pupil (Motor): Pupils equal, EOMI Mallampati: II Teeth: Edentulous Denture Type: Upper: Complete Oral Opening: Less than or equal to 3 - GUNNERY/[employer]NANCE OFFICER LOC: Oriented GUNNERY/ORDNANCE OFFICER Motor: Normal RUE, Normal RLE, Normal LLE, Normal Face, Deficit LUE (slight weakness) GUNNERY/ORDNANCE OFFICER Sensory: Normal: RUE, LUE, RLE, LLE, Face - Cardiac Rhythm: Regular Murmur: None JVD: No Carotid Bruit: No - Pulmonary Breath Sounds: bilateral Clear Respiratory Effort: Symmetrical Anesthesia Assess/Plan ASA Score: 3 (CAD HTN) Modified [place] Scale for Level of Consciousness: Cooperative, oriented, and tranquil Anesthetic Plan: MAC Monitoring Plan: Standard Monitors Recovery Plan: Other (Discussed MAC, agrees to proceed)
[2018-03-29] MEDS ORDERED: Gadolinium Contrast Agent (WT Based) IV PRN (08:34)
--- NOTE | 2018-03-29 12:50 | Anesthesia Evaluation Post Op ---
Date of Encounter: 03/29/18 Time of Encounter: 09:00 - Lungs Lungs: Clear Ascult./Percussion - Airway Airway: Non-obstructed - Cardiovascular Regular Rate - Mental Status Mental Status: Alert & Oriented, Answers Appropriately - Pain Pain Scale: 0 - Nausea Vomiting Nausea Vomiting: Not Present - Hydration Hydration: NPO - Discharge PostOp Status: Transfer Patient to floor
--- NOTE | 2018-03-29 16:37 | Discharge Summary ---
- NOTES TO OUTPATIENT PROVIDER Notes to Outpatient Provider: Patient was hospitalized here with episodes of nausea or vomiting and hematemesis. He was evaluated by GI and initially underwent upper GI endoscopy which showed gastritis and reflux esophagitis. He then underwent colonoscopy today which showed a polyp. GI recommended MRCP. However patient decided to leave the hospital AMA. He understands the risks involved and agrees to follow-up as outpatient with GI. Referral for the same has been made. Orders not resulted at time of discharge: Pending orders 03/29/18 09:04 Surgical Pathology [PTH] Routine 03/29/18 10:32 NORBERTO Titer by IFA Routine Cancer Antigen-GI (CA 19-9) Routine Date of Encounter: 03/29/18 Time of Encounter: 11:15 - Discharge Diagnosis (1) GI bleed Priority: Primary Status: Acute Qualifiers: GI bleed type/associated pathology: gastrointestinal hemorrhage with hematemesis Qualified Code(s): K92.0 - Hematemesis (2) Gastritis Priority: Secondary Status: Acute Qualifiers: Gastritis type: other gastritis Chronicity: acute Gastritis bleeding: with bleeding Qualified Code(s): K29.01 - Acute gastritis with bleeding (3) Nausea and vomiting Priority: Secondary Status: Acute Qualifiers: Vomiting type: unspecified Vomiting Intractability: intractable Qualified Code(s): R11.2 - Nausea with vomiting, unspecified (4) Abdominal pain Priority: Secondary Status: Acute Qualifiers: Abdominal location: epigastric Qualified Code(s): R10.13 - Epigastric pain (5) Hematemesis Priority: Secondary Status: Acute Qualifiers: Nausea presence: with nausea Qualified Code(s): K92.0 - Hematemesis Hospital course: Mr. Alcantara is a 47 year old male Patient with history of COPD, CAD was hospitalized here with episodes of nausea or vomiting and hematemesis. He was evaluated by GI and initially underwent upper GI endoscopy which showed gastritis and reflux esophagitis. He then underwent colonoscopy today which showed a polyp. GI recommended MRCP. However patient decided to leave the hospital AMA. He understands the risks involved and agrees to follow-up as outpatient with GI. Referral for the same has been made. Discharge discussed with: patient - Time Spent with Patient Total time spent providing and/or coordinating discharge services: Less than 30 minutes (15 min) - Discharge Medications Home Medications: Albuterol Sulfate [Ventolin Hfa] 2 puff IH Q4H PRN 03/27/18 [History] Aspirin [Aspirin] 81 mg PO DAILY 03/27/18 [History] Fluticasone Propionate Nasal [Flonase] 2 spr NS DAILY 03/27/18 [History] Ipratropium/Albuterol Sulfate [Combivent Respimat 20-100 Mcg] 1 puff PO QID [History] Isosorbide MONOnitrate (24 HR) [Imdur] 60 mg PO DAILY 03/27/18 [History] Lisinopril [Zestril] 20 mg PO DAILY 03/27/18 [History] Metformin HCl [Metformin HCl] 500 mg PO DAILY 03/27/18 [History] Metoprolol Tartrate [Metoprolol Tartrate] 50 mg PO BID 03/27/18 [History] Pregabalin [Lyrica] 200 mg PO TID 03/27/18 [History] Simvastatin [Zocor] 20 mg PO HS 03/27/18 [History] Terazosin HCl [Terazosin HCl] 10 mg PO HS 03/27/18 [History] Tizanidine HCl [Tizanidine HCl] 6 mg PO TID 03/27/18 [History] Allergies/Adverse Reactions: 3 Allergy/AdvReac Type Severity Reaction Status Date / Time celecoxib [From Celebrex] Allergy Swelling Verified 03/27/18 10:04 of Lip/Tongue/Throat gabapentin Allergy Difficulty Verified 03/27/18 10:04 Breathing lidocaine Allergy Difficulty Verified 03/27/18 10:04 Breathing Methadone Allergy Swelling Verified 03/27/18 10:04 of Lip/Tongue/Throat tramadol Allergy Difficulty Verified 03/27/18 10:04 Breathing acetaminophen AdvReac Vomiting Verified 03/27/18 10:04 [From Tylenol-Codeine #3] codeine AdvReac Vomiting Verified 03/27/18 10:04 [From Tylenol-Codeine #3] hydrocodone [From Vicodin] AdvReac Vomiting Verified 03/27/18 10:04 ibuprofen AdvReac Vomiting Verified 03/27/18 10:04 morphine AdvReac Vomiting Verified 03/27/18 10:04 Oxycodone [From OxyContin] AdvReac Vomiting Verified 03/27/18 10:04 pregabalin [From Lyrica] AdvReac Confusion Verified 03/27/18 10:04 Date of admission: 03/27/18 09:43 Primary care physician: Lyndsey Walls Consults: 03/27/18 10:23 Consult to Gastroenterology [CONS] Routine Consulting Provider: Gastroenterology Kait Reason for Consult: UGI Bleed Time Notified: 10:26 Call Completed: Yes 03/27/18 11:31 Consult to Nutrition [CONS] Routine Comment: Consulting Provider: NUTRITION Reason for Dietary Consult: MST Score Discharging clinician: Fish Mon Anticipated date of discharge: 03/29/18 - Constitutional Vitals: Temp Pulse Resp BP Pulse Ox 98.1 F 57 16 142/89 98 03/29/18 07:51 03/29/18 07:51 03/29/18 07:51 03/29/18 07:51 03/29/18 07:51 General appearance: Present: cooperative, A&O X 3, answers questions appropriately - Respiratory Respiratory exam: Present: CTAB. Absent: accessory muscle use, rales, rhonchi, wheezes - Cardiovascular Cardiovascular exam: Present: RRR, +S1, +S2. Absent: diastolic murmur, gallop, rubs, systolic murmur - GI/Abdominal GI/Abdominal exam: Present: normal bowel sounds, soft, tenderness (Epigastric), no peritoneal signs. Absent: distended - Patient Status Disposition: Left Against Medical Advice Condition: Fair Functional capacity at discharge: independent ambulation Overall status at discharge: patient is progressing back to baseline - Discharge Instructions Follow Up With: Sheldon Jolley MD [Partnered Physician] - (In one to 2 weeks) Lyndsey Walls [Primary Care Provider] - (In 1 week)
[2018-04-01 09:54] LABS: ANA Titer by IFA <1:80 (<1:80)
[2018-04-01 12:43] LABS: Cancer Antigen-GI (CA 19-9) 9 U/mL (0-37)
== END 2018-03-29 11:13 | disposition left against medical advice (07) ==
LOC: EMEROO 06:44 → 2ANU 06:44 → SUATTDRO 09:43 → 2ANU 10:35
PROVIDERS: ADMIT Internal Medicine; ATTEND Internal Medicine
PROC: ENDOEBX (2018-03-27 17:00)

== ENCOUNTER 2018-04-02 11:39 | Observation (INO) ==
[2018-04-02] MEDS ORDERED: Isovue-370 500 ML INFUS..BTL IV ONE ×2 (11:43→12:24)
[2018-04-02] MEDS ORDERED: *HR* FentaNYL (PF) 100 MCG/2 ML VIAL IVP ONE ×2 (11:43→20:36)
[2018-04-02] MEDS ORDERED: 0.9 % Sodium Chloride 1,000 ML IVC ONE (11:43)
[2018-04-02 12:15] LABS: Basophils # 0.1 K/mcL (0.0-0.2); Basophils % 0.6 %; Eosinophils # 0.7 K/mcL (0.0-0.6); Eosinophils % 6.9 %; Hemoglobin 15.1 g/dL (12.9-16.9); Immature Granulocytes % 0.2 % (0-4); Lymphocytes # 3.3 K/mcL (0.6-4.6); Lymphocytes % 34.3 %; Mean Corpuscular HGB Conc 33.6 g/dL (31.6-35.5); Mean Corpuscular Hemoglobin 30.3 pg (28.0-33.3); Mean Corpuscular Volume 90.2 fL (83.0-100.0); Mean Platelet Volume 9.8 fL (9.4-12.4); Monocytes # 0.9 K/mcL (0.0-1.3); Monocytes % 9.4 %; Neutrophils # 4.6 K/mcL (1.6-8.9); Platelet Count 279 K/mcL (140-400); Red Blood Count 4.99 M/mcL (4.19-5.50); Red Cell Distribution Width 13.8 % (11.5-14.5); Segmented Neutrophils % 48.6 %
--- NOTE | 2018-04-02 12:25 | Emergency Department Note ---
Disposition Clinical Impression: Epigastric pain Disposition: Admitted As Inpatient Condition: Good Referrals: Lyndsey Walls [Primary Care Provider] - Forms: ED Satisfaction Letter, Work/School Release Time of Disposition: 12:36 Abdominal Pain HPI - General Chief Complaint: ED Abdominal Pain Stated Complaint: abd pain Time Seen by Provider: 04/02/18 11:43 Source: patient Mode of arrival: ambulatory Limitations: no limitations Nursing Notes Reviewed: Yes Vital Signs Reviewed: Yes - History of Present Illness HPI Narrative: 47 year old male isabel to the ED with complaitns of epigastric abdominall pain that has been worsening over the past three weeks and states that he has lost about 34 pounds in that interim peridod. Matt states that he was seen at Dr. Irizarry office and was sent for admission. He was most recently admitted last week for someithign simiar but it apears he did not finish his admission evlaution which required an MRCP. Patient states that it radiatines into this bottom of his abdomen and into his back and was sent here for possibl pancreatitis although hsi last CT scan showed enteritis but this wouldnot explain the 34 pound wieght loss. Tavo sates that someimtes the pain radiates into this chest although churrently he doesnot have chest pain. he has been epxerincing profuse vomitting and earlier states that he had hematesis during his las admission which was diagnsoed as a casey tia tear. His previous colonoscop per Dr. Jolley showed some tubular adenomas but not malignant cancer Pain Scale: 4 - Related Data Home Medications Medication Instructions Recorded Confirmed Aspirin [Aspirin] 81 mg PO DAILY 03/27/18 04/02/18 Fluticasone Propionate Nasal 2 spr NS DAILY 03/27/18 04/02/18 [Flonase] Ipratropium/Albuterol Sulfate 1 puff PO QID 03/27/18 04/02/18 [Combivent Respimat 20-100 Mcg] Isosorbide MONOnitrate (24 HR) 60 mg PO DAILY 03/27/18 04/02/18 [Imdur] Lisinopril [Zestril] 20 mg PO DAILY 03/27/18 04/02/18 Metoprolol Tartrate [Metoprolol 50 mg PO BID 03/27/18 04/02/18 Tartrate] Pregabalin [Lyrica] 200 mg PO TID 03/27/18 04/02/18 Simvastatin [Zocor] 20 mg PO HS 03/27/18 04/02/18 Terazosin HCl [Terazosin HCl] 10 mg PO HS 03/27/18 04/02/18 Tizanidine HCl [Tizanidine HCl] 6 mg PO TID 03/27/18 04/02/18 Metformin HCl [Glucophage] 1,000 mg PO BID 04/02/18 04/02/18 Allergies Allergy/AdvReac Type Severity Reaction Status Date / Time celecoxib [From Celebrex] Allergy Swelling Verified 03/30/18 12:34 of Lip/Tongue/Throat gabapentin Allergy Difficulty Verified 03/30/18 12:34 Breathing lidocaine Allergy Difficulty Verified 03/30/18 12:34 Breathing Methadone Allergy Swelling Verified 03/30/18 12:34 of Lip/Tongue/Throat tramadol Allergy Difficulty Verified 03/30/18 12:34 Breathing acetaminophen AdvReac Vomiting Verified 03/30/18 12:34 [From Tylenol-Codeine #3] codeine AdvReac Vomiting Verified 03/30/18 12:34 [From Tylenol-Codeine #3] hydrocodone [From Vicodin] AdvReac Vomiting Verified 03/30/18 12:34 ibuprofen AdvReac Vomiting Verified 03/30/18 12:34 morphine AdvReac Vomiting Verified 03/30/18 12:34 Oxycodone [From OxyContin] AdvReac Vomiting Verified 03/30/18 12:34 pregabalin [From Lyrica] AdvReac Confusion Verified 03/30/18 12:34 Constitutional: Denies: fever, chills, weakness, weight change Eyes: Denies: eye pain, eye discharge, vision change ENT ED: Denies: ear pain, throat pain, dental pain, hearing loss, epistaxis, congestion, dysphagia Cardiovascular: Denies: chest pain, palpitations, dyspnea on exertion, edema, syncope Respiratory: Denies: cough, dyspnea, wheezes, hemoptysis, stridor Gastrointestinal: Reports: abdominal pain, nausea, vomiting. Denies: diarrhea, constipation, hematemesis, melena, hematochezia Genitourinary: Denies: urgency, dysuria, frequency, hematuria Musculoskeletal: Denies: back pain, neck pain, arthralgia, myalgia Integumentary: Denies: rash, abrasion, lesions Neurological: Denies: headache, weakness, numbness, paresthesias, confusion, abnormal gait, vertigo Psychiatric: Denies: anxiety, depression, suicidal thoughts, homicidal thoughts , auditory hallucinations, visual hallucinations Endocrine: Denies: fatigue Hematological/Lymphatic: Denies: easy bleeding, easy bruising Allergic/Immunologic: Denies: facial swelling, urticaria Abdominal Pain PMH - Past Medical History Medical history: Reports: COPD, myocardial infarction Male Surgical History: Reports: other Psychiatric history: Reports: no psych history - Social History Smoking status: Former smoker (Patient has a [id number] smoking history quit 3 weeks ago) Alcohol use: Reports: none Drug use: Reports: none Physical Exam - General Limitations: no limitations General appearance: alert, in no apparent distress, cachectic - Head Head exam: atraumatic, normocephalic, normal inspection - Eye Eye exam: Present: normal appearance, PERRL, EOMI - Expanded Eye Exam Pupils: Bilateral: reactive - ENT ENT exam: normal exam, normal oropharynx, mucous membranes moist - Expanded ENT Exam External ear exam: Present: normal external inspection Mouth exam: Present: normal external inspection Teeth exam: Present: normal inspection Throat exam: Present: normal inspection - Neck Neck exam: Present: normal inspection, full ROM, trachea midline - Chest Chest inspection: Present: normal inspection, symmetric chest wall rise - Respiratory Respiratory exam: Present: normal lung sounds bilaterally - Cardiovascular Cardiovascular exam: Present: regular rate, normal rhythm, normal heart sounds - Abdominal Exam Abdominal exam: Present: soft, tenderness, normal bowel sounds. Absent: Non- Tender, distention, guarding, rebound, rigidity, psoas sign, obturator sign, Pedroza's sign, Rovsing's sign, tenderness at McBurney's Point, mass, pulsatile mass - Extremities Exam Extremities exam: Present: normal inspection, full ROM. Absent: tenderness, pedal edema - Expanded Upper Extremity Exam Shoulder exam: Present: normal inspection, full ROM Arm exam: Present: normal inspection, full ROM Elbow exam: Present: normal inspection, full ROM Forearm/Wrist exam: Present: normal inspection, full ROM Hand exam: Present: normal inspection, full ROM Vascular exam: Normal: capillary refill, radial pulse - Expanded Lower Extremity Exam Hip/Pelvis exam: Present: normal inspection, full ROM Upper leg exam: Present: normal inspection, full ROM Knee exam: Present: normal inspection, full ROM Lower leg exam: Present: normal inspection, full ROM Ankle exam: Present: normal inspection, full ROM Foot/toe exam: Present: normal inspection, full ROM Neurovascular/Tendon exam: Absent: motor deficit, sensory deficit, tendon deficit - Back Exam Back exam: Present: normal inspection, full ROM. Absent: tenderness - Neurological Exam Neurological exam: Present: alert, oriented X3 - Expanded Neurological Exam Patient oriented to: Present: person, place, time Coma Scale Eye Opening: Spontaneous Coma Scale Motor Response: Obeys Commands Coma Scale Verbal Response: Oriented Coma Scale Total: 15 - Psychiatric Psychiatric exam: Present: normal affect, normal mood - Skin Skin exam: Present: warm, dry, intact, normal color Course Course Narrative: we will discuss with Dr. Jolley as he sent here for evlautiona nd start with Aabdominal labs and CT. - Consultations Consultation #1: discussed case with Dr. Jolley and he is concenred for pancreatic cancer as he has lost 34 pounds and is unwilling to eat and would marisol to order a MRCP to rule out pancreatic cancer as an inpatient. Tavo tleft AMA before full evlauation and showed up for outaptient today in his office. [facility] Time: 12:24 Consultation #2: discussed case with Dr. Merida and he accepts patient for admsision. Time: 14:11 Vital Signs Temperature 97.2 F L 04/02/18 11:41 Pulse Rate 86 04/02/18 11:41 Respiratory Rate 16 04/02/18 11:41 Blood Pressure 142/97 04/02/18 11:41 O2 Sat by Pulse Oximetry 98 04/02/18 11:41 Temperature 97.2 F L 04/02/18 12:29 Pulse Rate 82 04/02/18 13:34 Respiratory Rate 18 04/02/18 13:34 Blood Pressure 129/91 04/02/18 13:34 O2 Sat by Pulse Oximetry 99 04/02/18 13:34 Oxygen Delivery Oxygen Delivery Room Air Abdominal Pain - Medical Records Medical records reviewed: Yes I reviewed the patient's medical records. - Lab Data Lab results reviewed: Yes I reviewed the patient's lab results. Result diagrams: 04/02/18 12:02 04/02/18 12:02 Lab Results 04/02/18 04/02/18 04/02/18 Range/Units 12:02 12:02 12:02 WBC 9.5 (4.3-11.1) K/mcL RBC 4.99 (4.19-5.50) M/mcL Hgb 15.1 (12.9-16.9) g/dL Hct 45.0 (37.5-50.1) % MCV 90.2 (83.0-100.0) fL MCH 30.3 (28.0-33.3) pg MCHC 33.6 (31.6-35.5) g/dL RDW 13.8 (11.5-14.5) % Plt Count 279 (140-400) K/mcL MPV 9.8 (9.4-12.4) fL Immature Gran % 0.2 (0-4) % Seg Neutrophils % 48.6 % Lymphocytes % 34.3 % Monocytes % 9.4 % Eosinophils % 6.9 % Basophils % 0.6 % Neutrophils # 4.6 (1.6-8.9) K/mcL Lymphocytes # 3.3 (0.6-4.6) K/mcL Monocytes # 0.9 (0.0-1.3) K/mcL Eosinophils # 0.7 H (0.0-0.6) K/mcL Basophils # 0.1 (0.0-0.2) K/mcL PT 9.7 (9.4-12.1) Seconds INR 0.9 APTT 27.0 (26.0-36.0) Seconds Sodium 136 (136-145) mEq/L Potassium 4.9 (3.5-5.1) mEq/L Chloride 102 (98-107) mEq/L Carbon Dioxide 28 (23-29) mEq/L BUN 18 (6-20) mg/dL Creatinine 0.99 (0.70-1.30) mg/dL Est GFR ( Amer) > 60 (> 60) Est GFR (Non-Af Amer) > 60 (> 60) BUN/Creatinine Ratio 18 (6-26) Glucose 85 (70-105) mg/dL Calculated Osmolality 283 (280-300) Calcium 10.0 (8.6-10.3) mg/dL Total Bilirubin 0.4 (0.3-1.0) mg/dL Direct Bilirubin 0.1 (0.0-0.2) mg/dL Indirect Bilirubin 0.3 (0.0-1.2) mg/dL AST 17 (13-39) Units/L ALT 15 (7-52) Units/L Alkaline Phosphatase 72 (34-104) Units/L Troponin I < 0.03 (< 0.04) ng/mL Serum Total Protein 7.0 (6.4-8.9) g/dL Albumin 4.5 (3.5-5.7) g/dL Globulin 2.5 (2.4-3.5) g/dL Albumin/Globulin Ratio 1.8 (1.1-2.2) Lipase 69 (11-82) Units/L Urine Color (Yellow) Urine Clarity (Clear) Urine pH (5.0-8.0) pH Units Ur Specific [place] (1.010-1.025) Urine Protein (Neg-Trace) mg/dL Urine Glucose (UA) (Normal) mg/dL Urine Ketones (Negative) mg/dL Urine Blood (Negative) Urine Nitrite (Negative) Urine Bilirubin (Negative) Urine Urobilinogen (Normal) mg/dL Ur Leukocyte Esterase (Negative) Ur Culture Indicated? (NO) 04/02/18 Range/Units 13:32 WBC (4.3-11.1) K/mcL RBC (4.19-5.50) M/mcL Hgb (12.9-16.9) g/dL Hct (37.5-50.1) % MCV (83.0-100.0) fL MCH (28.0-33.3) pg MCHC (31.6-35.5) g/dL RDW (11.5-14.5) % Plt Count (140-400) K/mcL MPV (9.4-12.4) fL Immature Gran % (0-4) % Seg Neutrophils % % Lymphocytes % % Monocytes % % Eosinophils % % Basophils % % Neutrophils # (1.6-8.9) K/mcL Lymphocytes # (0.6-4.6) K/mcL Monocytes # (0.0-1.3) K/mcL Eosinophils # (0.0-0.6) K/mcL Basophils # (0.0-0.2) K/mcL PT (9.4-12.1) Seconds INR APTT (26.0-36.0) Seconds Sodium (136-145) mEq/L Potassium (3.5-5.1) mEq/L Chloride (98-107) mEq/L Carbon Dioxide (23-29) mEq/L BUN (6-20) mg/dL Creatinine (0.70-1.30) mg/dL Est GFR ( Amer) (> 60) Est GFR (Non-Af Amer) (> 60) BUN/Creatinine Ratio (6-26) Glucose (70-105) mg/dL Calculated Osmolality (280-300) Calcium (8.6-10.3) mg/dL Total Bilirubin (0.3-1.0) mg/dL Direct Bilirubin (0.0-0.2) mg/dL Indirect Bilirubin (0.0-1.2) mg/dL AST (13-39) Units/L ALT (7-52) Units/L Alkaline Phosphatase (34-104) Units/L Troponin I (< 0.04) ng/mL Serum Total Protein (6.4-8.9) g/dL Albumin (3.5-5.7) g/dL Globulin (2.4-3.5) g/dL Albumin/Globulin Ratio (1.1-2.2) Lipase (11-82) Units/L Urine Color Yellow (Yellow) Urine Clarity Clear (Clear) Urine pH 6.0 (5.0-8.0) pH Units Ur Specific [place] 1.008 L (1.010-1.025) Urine Protein Negative (Neg-Trace) mg/dL Urine Glucose (UA) Normal (Normal) mg/dL Urine Ketones Negative (Negative) mg/dL Urine Blood Negative (Negative) Urine Nitrite Negative (Negative) Urine Bilirubin Negative (Negative) Urine Urobilinogen Normal (Normal) mg/dL Ur Leukocyte Esterase Negative (Negative) Ur Culture Indicated? NO (NO) - Radiology Data Radiology results reviewed: Yes I reviewed the patient's radiology results. - EKG Data EKG attestation: Yes I reviewed and interpreted this EKG. EKG results narrative: NSR with rate of 85. NO stemi. normal intervals. no old ekg 1200
[2018-04-02 12:38] LABS: INR 0.9; Prothrombin Time 9.7 Seconds (9.4-12.1)
[2018-04-02 12:40] LABS: Troponin I < 0.03 ng/mL (< 0.04)
[2018-04-02 12:44] LABS: Alanine Aminotransferase 15 Units/L (7-52); Albumin 4.5 g/dL (3.5-5.7); Albumin/Globulin Ratio 1.8 (1.1-2.2); Alkaline Phosphatase 72 Units/L (34-104); Aspartate Amino Transferase 17 Units/L (13-39); BUN/Creatinine Ratio 18 (6-26); Bilirubin,Direct 0.1 mg/dL (0.0-0.2); Bilirubin,Indirect 0.3 mg/dL (0.0-1.2); Bilirubin,Total 0.4 mg/dL (0.3-1.0); Blood Urea Nitrogen 18 mg/dL (6-20); Carbon Dioxide 28 mEq/L (23-29); Chloride 102 mEq/L (98-107); Globulin 2.5 g/dL (2.4-3.5); Glucose 85 mg/dL (70-105); Lipase 69 Units/L (11-82); Osmolality,Calculated 283 (280-300); Potassium 4.9 mEq/L (3.5-5.1); Sodium 136 mEq/L (136-145); eGFR For Non-African Americans > 60 (> 60)
[2018-04-02 13:50] LABS: Bilirubin,Urine Negative (Negative); Blood,Urine Negative (Negative); Clarity,Urine Clear (Clear); Color,Urine Yellow (Yellow); Glucose,Urine (UA) Normal (Normal); Ketones,Urine Negative (Negative); Leukocyte Esterase,Urine Negative (Negative); Nitrite,Urine Negative (Negative); Protein,Urine Negative (Neg-Trace); Specific Gravity,Urine 1.008 (1.010-1.025); Urobilinogen,Urine Normal (Normal)
[2018-04-02] MEDS ORDERED: Ketorolac 30 MG/ML VIAL IVP PRN (17:33)
[2018-04-02] MEDS ORDERED: Ondansetron 4 MG/2 ML VIAL IVP PRN (17:34)
[2018-04-02] MEDS: 0.9 % Sodium Chloride 1,000 ML IVC SCH (17:57)
--- NOTE | 2018-04-02 18:31 | Internal Med History&Physical ---
Date of Encounter: 04/02/18 Time of Encounter: 11:00 Internal Medicine - H&P: HPI Chief complaint: Abdominal pain Admitted From: Home History of present illness: Patient is a 47-year-old male with past medical history significant for hypertension, hyperlipidemia and diabetes who presents to the ER on 03/23/18 due to abdominal pain. Patient reports a two-week history of epigastric sharp pain which he states is constant. Patient denies any radiation of pain or provoking/relieving symptoms. Patient does report of associated symptoms of nausea/vomiting. In addition patient also reports of a 35 pound weight loss. Patient has been seen by GI as an outpatient who recommended the patient come in for evaluation. Past Med Surg Social Fam HX - Past Medical History Medical history: arthritis, COPD, DVT, hyperlipidemia, hypertension, myocardial infarction Psychiatric history: no psych history - Past Surgical History Surgical History: cholecystectomy Additional surgical history: facial reconstruction, removal of crushed rt testicle, 13 abdomen surgeries, right knee - Social History Smoking Status: Current every day smoker Packs per day: 2ciggs/day Smokeless Tobacco Status: No Alcohol use: none Drug use: none - Additional Family History Additional family history: Noncontributory Internal Medicine - H&P: Meds Aspirin [Aspirin] 81 mg PO DAILY 03/27/18 [History] Fluticasone Propionate Nasal [Flonase] 2 spr NS DAILY 03/27/18 [History] Ipratropium/Albuterol Sulfate [Combivent Respimat 20-100 Mcg] 1 puff PO QID [History] Isosorbide MONOnitrate (24 HR) [Imdur] 60 mg PO DAILY 03/27/18 [History] Lisinopril [Zestril] 20 mg PO DAILY 03/27/18 [History] Metoprolol Tartrate [Metoprolol Tartrate] 50 mg PO BID 03/27/18 [History] Pregabalin [Lyrica] 200 mg PO TID 03/27/18 [History] Simvastatin [Zocor] 20 mg PO HS 03/27/18 [History] Terazosin HCl [Terazosin HCl] 10 mg PO HS 03/27/18 [History] Tizanidine HCl [Tizanidine HCl] 6 mg PO TID 03/27/18 [History] Metformin HCl [Glucophage] 1,000 mg PO BID 04/02/18 [History] 3 Allergy/AdvReac Type Severity Reaction Status Date / Time celecoxib [From Celebrex] Allergy Swelling Verified 03/30/18 12:34 of Lip/Tongue/Throat gabapentin Allergy Difficulty Verified 03/30/18 12:34 Breathing lidocaine Allergy Difficulty Verified 03/30/18 12:34 Breathing Methadone Allergy Swelling Verified 03/30/18 12:34 of Lip/Tongue/Throat tramadol Allergy Difficulty Verified 03/30/18 12:34 Breathing acetaminophen AdvReac Vomiting Verified 03/30/18 12:34 [From Tylenol-Codeine #3] codeine AdvReac Vomiting Verified 03/30/18 12:34 [From Tylenol-Codeine #3] hydrocodone [From Vicodin] AdvReac Vomiting Verified 03/30/18 12:34 ibuprofen AdvReac Vomiting Verified 03/30/18 12:34 morphine AdvReac Vomiting Verified 03/30/18 12:34 Oxycodone [From OxyContin] AdvReac Vomiting Verified 03/30/18 12:34 pregabalin [From Lyrica] AdvReac Confusion Verified 03/30/18 12:34 All Systems PM: A 10-system review of systems was performed and is negative for pertinent findings except as documented above in the HPI. - Constitutional Vitals: Temp Pulse Resp BP Pulse Ox 98.0 F 81 15 131/87 99 04/02/18 15:12 04/02/18 15:12 04/02/18 15:12 04/02/18 15:12 04/02/18 15:12 General appearance: Present: A&O X 3, no acute distress - ENT ENT exam: Present: mucous membranes moist - Respiratory Respiratory exam: Present: CTAB. Absent: accessory muscle use, rales, rhonchi, wheezes - Cardiovascular Cardiovascular exam: Present: RRR, +S1, +S2. Absent: diastolic murmur, gallop, rubs, systolic murmur - GI/Abdominal GI/Abdominal exam: Present: tenderness. Absent: distended - Extremities Exam Extremities exam: Absent: pedal edema - Neurological Exam Neurological exam: Present: oriented X3 - Psychiatric Psychiatric exam: Present: normal mood - Skin Skin exam: Present: normal color Internal Med - H&P Results - Labs CBC & Chem 7: 04/02/18 12:02 04/02/18 12:02 - Assessment and plan (1) Epigastric pain Current Visit: Yes Status: Acute Assessment and plan: Patient with a two-week history of epigastric pain with epigastric tenderness to palpation on exam. Will make patient nothing by mouth for concerns of pancreatitis and start IV fluids. Patient is known by GI who will be consulted and appreciate recommendations (2) Nausea and vomiting Current Visit: No Status: Acute Assessment and plan: Will give IV Zofran as needed Qualifiers: Vomiting type: unspecified Vomiting Intractability: intractable Qualified Code(s): R11.2 - Nausea with vomiting, unspecified (3) History of coronary artery disease Current Visit: No Status: Acute Assessment and plan: Continue home medications (4) DVT prophylaxis Current Visit: No Status: Acute Assessment and plan: Subcutaneous heparin - Time Spent With Patient Total time spent is greater than 50% in coordination of care (as documented) at patient's floor/unit and/or counseling patient:
[2018-04-02] MEDS ORDERED: Naloxone 0.4 MG/ML INJ IVP PRN (18:38)
[2018-04-02] MEDS ORDERED: Acetaminophen 325 MG TABLET PO PRN (18:59)
[2018-04-02] MEDS: Pregabalin 50 MG CAPSULE PO SCH (20:34)
[2018-04-02] MEDS: tiZANidine 4 MG TABLET PO SCH (20:34)
[2018-04-02] MEDS: Ipratropium/Albuterol Neb 3 ML IH SCH (23:52)
[2018-04-03] MEDS: 0.9 % Sodium Chloride 1,000 ML IVC SCH ×2 (01:11→08:44)
[2018-04-03] MEDS ORDERED: *HR* FentaNYL (PF) 100 MCG/2 ML VIAL IVP ONE (01:53)
[2018-04-03] MEDS ORDERED: Ketorolac 30 MG/ML VIAL IVP ONE (01:53)
[2018-04-03] MEDS: Ipratropium/Albuterol Neb 3 ML IH SCH (04:30)
--- NOTE | 2018-04-03 06:20 | Electrocardiograph Report ---
[facility] Test Date: 2018-04-02 Pat Name: Vaughn Alcantara Department: 104 Room: 3A51 Gender: M Emergency Room Specialist: : 1970 Requested By: Vanessa Gomez Order Number: [id number] Reading MD: Rhett Siegel Measurements Intervals [place] Rate: 85 P: 85 [place]: 104 QRS: 83 QRSD: 74 T: 68 QT: 359 QTc: 401 Interpretive Statements SINUS RHYTHM WITH SHORT [place] INTERVAL Electronically Signed On 04-03-2018 6:18:16 EDT by Rhett Siegel
[2018-04-03 06:45] LABS: BUN/Creatinine Ratio 13 (6-26); Blood Urea Nitrogen 11 mg/dL (6-20); Carbon Dioxide 23 mEq/L (23-29); Chloride 110 mEq/L (98-107); Glucose 104 mg/dL (70-105); Osmolality,Calculated 284 (280-300); Potassium 4.2 mEq/L (3.5-5.1); Sodium 137 mEq/L (136-145); eGFR For Non-African Americans > 60 (> 60)
[2018-04-03 07:46] VITALS: BP 121/77
[2018-04-03 08:27] LABS: Basophils % 0.4 %; Eosinophils # 0.6 K/mcL (0.0-0.6); Eosinophils % 6.4 %; Hematocrit 38.1 % (37.5-50.1); Hemoglobin 13.3 g/dL (12.9-16.9); Immature Granulocytes % 0.2 % (0-4); Lymphocytes # 3.2 K/mcL (0.6-4.6); Lymphocytes % 35.1 %; Mean Corpuscular HGB Conc 34.9 g/dL (31.6-35.5); Mean Corpuscular Hemoglobin 30.8 pg (28.0-33.3); Mean Corpuscular Volume 88.2 fL (83.0-100.0); Mean Platelet Volume 10.6 fL (9.4-12.4); Monocytes # 0.6 K/mcL (0.0-1.3); Monocytes % 6.8 %; Neutrophils # 4.6 K/mcL (1.6-8.9); Platelet Count 260 K/mcL (140-400); Red Blood Count 4.32 M/mcL (4.19-5.50); Red Cell Distribution Width 13.8 % (11.5-14.5); Segmented Neutrophils % 51.1 %
[2018-04-03] MEDS: tiZANidine 4 MG TABLET PO SCH (08:44)
[2018-04-03] MEDS: Pregabalin 50 MG CAPSULE PO SCH (08:45)
[2018-04-03] MEDS ORDERED: Isosorbide MONOnitrate (24 HR) 60 MG TAB.ER.24H PO SCH (09:00)
[2018-04-03] MEDS ORDERED: Fluticasone Propionate Nasal 50 MCG/SPRAY BOTTLE NS SCH (09:00)
[2018-04-03] MEDS ORDERED: Lisinopril 20 MG TABLET PO SCH (09:00)
[2018-04-03] MEDS ORDERED: Aspirin 81 MG TAB.CHEW PO SCH (09:00)
--- NOTE | 2018-04-03 09:52 | Internal Med Progress Note ---
Hospitalist Progress Note - Encounter Date of Encounter: 04/03/18 Time of Encounter: 09:49 - Subjective Interval History: Patient complained of productive cough with greenish sputum for almost 1 week with night sweats and fatigue. He complained of upper abdomen pain in the band form involved right and left upper quadrant and epigastrium that has been for almost 3 weeks. Patient also lost 20-30 pounds in last 3 weeks due to severe nausea vomiting. Nausea better denies any vomiting diarrhea constipation. Patient was sent from GI office yesterday with concern of pancreatitis. Patient has family history of pancreatic cancer in her sister at her 40s. Reviewed the lab with normal lipase and LFTs denies fever chills headache dizziness chest pain short of breath urinary or bowel complaint - Exam Vitals: Temp Pulse Resp BP Pulse Ox 98.3 F 84 16 121/77 97 04/03/18 07:41 04/03/18 07:41 04/03/18 07:41 04/03/18 07:41 04/03/18 07:41 Exam: General appearance: No acute distress, A&O X 3, watching TV and lying position, lean and thin Head exam: Atraumatic Eye exam: EOMI, PERRLA ENT exam: Moist oral mucosa Neck nontender, supple Respiratory exam: Questionable crepitation on left lower base Cardiovascular exam: Regular rate and rhythm, no systolic murmur Abdominal exam: Soft, mild tenderness in upper abdomen epigastrium, left and right upper quadrant, no guarding or rigidity or rebound tenderness, nondistended, positive bowel sounds Extremities exam: No calf tenderness, no pedal edema Present: Skin-warm, dry, intact Neurological exam: Grossly CN II-XII intact, no focal deficits. No facial droop. Normal speech. Normal gait. - Assessment and Plan (1) Epigastric pain Current Visit: Yes Status: Acute Assessment and Plan: Patient with a 3 history of upper abdomen pain including epigastric pain . No acute abdomen finding. Lipase negative. CT not suggestive of pancreatitis however there is a small amount of free fluid in the pelvis which is of uncertain etiology but consider abnormal finding in male. Keep patient nothing by mouth, IV fluid, antiemetic. GI consultation done and will wait for further recommendation. History of pancreatic cancer in his sister at age 40s (2) Nausea and vomiting Current Visit: No Status: Acute Assessment and Plan: Better. Continue IV Zofran as needed (3) Pneumonia Current Visit: Yes Status: Acute Assessment and Plan: Based on clinical symptom night sweats, greenish productive a sputum. CT chest with increased endobronchial secretion and left lower lobe but no comment on consolidation. Will restart empiric antibiotic therapy Levaquin after collecting a sputum culture, DuoNeb, incentive spirometry, oxygen if needed (4) History of coronary artery disease Current Visit: No Status: Acute Assessment and Plan: Continue home medications (5) DVT prophylaxis Current Visit: No Status: Acute Assessment and Plan: Subcutaneous heparin - Time Spent with Patient Total time spent is greater than 50% in coordination of care (as documented) at patient's floor/unit and/or counseling patient: 25 - 35 minutes Internal Medicine: Result - Labs CBC & Chem 7: 04/03/18 06:06 04/03/18 06:06 Labs: Short CBC 04/03/18 Range/Units 06:06 WBC 9.0 (4.3-11.1) K/mcL Hgb 13.3 D (12.9-16.9) g/dL Hct 38.1 (37.5-50.1) % Plt Count 260 (140-400) K/mcL Neutrophils # 4.6 (1.6-8.9) K/mcL BMP 04/03/18 06:06 Sodium 137 Potassium 4.2 Chloride 110 H Carbon Dioxide 23 BUN 11 Creatinine 0.84 Glucose 104 Calcium 9.0 - ABG Interpretation ABG results: PT/INR, D-dimer PT 9.7 Seconds (9.4-12.1) 04/02/18 12:02 Consult Discharge Plan - Plan Referrals: Lyndsey Walls [Primary Care Provider] - (2) Nausea and vomiting Qualifiers: Vomiting type: unspecified Vomiting Intractability: intractable Qualified Code(s): R11.2 - Nausea with vomiting, unspecified (3) Pneumonia Qualifiers: Pneumonia type: due to unspecified organism Laterality: left Lung location: unspecified part of lung Qualified Code(s): J18.9 - Pneumonia, unspecified organism
[2018-04-03] MEDS ORDERED: Ipratropium/Albuterol Neb 3 ML IH SCH (10:00)
[2018-04-03] MEDS ORDERED: Levofloxacin 750 MG/150 ML 750 MG/150 ML BAG IVPB SCH (10:00)
[2018-04-03] MEDS ORDERED: 0.9 % Sodium Chloride 1,000 ML IVC SCH (10:03)
[2018-04-03] MEDS ORDERED: Ipratropium/Albuterol Neb 3 ML IH PRN (10:04)
--- NOTE | 2018-04-03 17:01 | Event Note ---
Date of Encounter: 04/03/18 Time of Encounter: 16:58 nurse informed that pt decided to [facility]AMA all of sudden without any warning. pt was left before I reached to his room
== END 2018-04-03 11:00 | disposition left against medical advice (07) ==
LOC: EMEROO 11:39 → 3ANU 11:39
PROVIDERS: ADMIT Hospitalist; ATTEND Hospitalist

== ENCOUNTER 2018-04-11 03:30 | Observation (INO) ==
--- NOTE | 2018-04-11 04:09 | Emergency Department Note ---
Disposition Clinical Impression: Epigastric pain, Tachycardia Hematemesis Qualifiers: Nausea presence: with nausea Qualified Code(s): K92.0 - Hematemesis Disposition: Admitted As Inpatient Condition: Good Referrals: Lyndsey Walls [Primary Care Provider] - Forms: ED Satisfaction Letter, Work/School Release Time of Disposition: 06:02 Abdominal Pain HPI - General Chief Complaint: ED Abdominal Pain Stated Complaint: GI BLEED Time Seen by Provider: 04/11/18 03:50 Source: patient, EMS Mode of arrival: ambulatory Limitations: no limitations Nursing Notes Reviewed: Yes Vital Signs Reviewed: Yes - History of Present Illness HPI Narrative: Patient is a 47-year-old male with past medical history of gastritis, weight loss, hematemesis. He presents today due to concern for continued hematemesis and epigastric discomfort. Patient had colonoscopy and upper GI performed in March. This is performed by Dr. Jolley. Upper endoscopy showed gastritis, nonbleeding angiodysplasia. Colonoscopy showed nonbleeding internal hemorrhoids , one polyp that was removed. Patient states that over the past 2-3 days, he has had return of nausea, vomiting, black coffee-ground emesis. He denies being on any daily antacid. Denies any other fevers, diarrhea, blood in stool or black stools, dysuria, hematuria. Pain Scale: 10 - Related Data Home Medications Medication Instructions Recorded Confirmed Aspirin [Aspirin] 81 mg PO DAILY 03/27/18 04/02/18 Fluticasone Propionate Nasal 2 spr NS DAILY 03/27/18 04/02/18 [Flonase] Ipratropium/Albuterol Sulfate 1 puff PO QID 03/27/18 04/02/18 [Combivent Respimat 20-100 Mcg] Isosorbide MONOnitrate (24 HR) 60 mg PO DAILY 03/27/18 04/02/18 [Imdur] Lisinopril [Zestril] 20 mg PO DAILY 03/27/18 04/02/18 Metoprolol Tartrate [Metoprolol 50 mg PO BID 03/27/18 04/02/18 Tartrate] Pregabalin [Lyrica] 200 mg PO TID 03/27/18 04/02/18 Simvastatin [Zocor] 20 mg PO HS 03/27/18 04/02/18 Terazosin HCl [Terazosin HCl] 10 mg PO HS 03/27/18 04/02/18 Tizanidine HCl [Tizanidine HCl] 6 mg PO TID 03/27/18 04/02/18 Metformin HCl [Glucophage] 1,000 mg PO BID 04/02/18 04/02/18 Allergies Allergy/AdvReac Type Severity Reaction Status Date / Time celecoxib [From Celebrex] Allergy Swelling Verified 03/30/18 12:34 of Lip/Tongue/Throat gabapentin Allergy Difficulty Verified 03/30/18 12:34 Breathing lidocaine Allergy Difficulty Verified 03/30/18 12:34 Breathing Methadone Allergy Swelling Verified 03/30/18 12:34 of Lip/Tongue/Throat tramadol Allergy Difficulty Verified 03/30/18 12:34 Breathing acetaminophen AdvReac Vomiting Verified 03/30/18 12:34 [From Tylenol-Codeine #3] codeine AdvReac Vomiting Verified 03/30/18 12:34 [From Tylenol-Codeine #3] hydrocodone [From Vicodin] AdvReac Vomiting Verified 03/30/18 12:34 ibuprofen AdvReac Vomiting Verified 03/30/18 12:34 morphine AdvReac Vomiting Verified 03/30/18 12:34 Oxycodone [From OxyContin] AdvReac Vomiting Verified 03/30/18 12:34 pregabalin [From Lyrica] AdvReac Confusion Verified 03/30/18 12:34 All systems ED: reviewed and negative except as stated. Constitutional: Denies: fever Cardiovascular: Denies: chest pain Respiratory: Denies: cough, dyspnea Gastrointestinal: Reports: abdominal pain, nausea, vomiting, hematemesis. Denies: diarrhea, constipation, melena, hematochezia Genitourinary: Denies: urgency, dysuria Neurological: Denies: headache, weakness, numbness Abdominal Pain PMH - Past Medical History Medical history: Reports: arthritis, COPD, DVT, hyperlipidemia, hypertension, myocardial infarction, other Male Surgical History: Reports: other Psychiatric history: Reports: no psych history - Social History Smoking status: Current every day smoker Alcohol use: Reports: none Drug use: Reports: none Physical Exam - General Limitations: no limitations General appearance: alert, in no apparent distress - Head Head exam: atraumatic, normocephalic, normal inspection - Eye Eye exam: Present: normal appearance, PERRL, EOMI - ENT ENT exam: normal exam, normal oropharynx, mucous membranes moist - Neck Neck exam: Present: normal inspection, full ROM, trachea midline - Chest Chest inspection: Present: normal inspection, symmetric chest wall rise - Respiratory Respiratory exam: Present: normal lung sounds bilaterally - Cardiovascular Cardiovascular exam: Present: regular rate, normal rhythm, normal heart sounds - Abdominal Exam Abdominal exam: Present: soft, tenderness (Epigastric tenderness, moderate). Absent: distention, guarding, rebound, rigidity, Pedroza's sign, Rovsing's sign, tenderness at McBurney's Point - Extremities Exam Extremities exam: Present: normal inspection, full ROM. Absent: tenderness, pedal edema - Neurological Exam Neurological exam: Present: alert, oriented X3 - Psychiatric Psychiatric exam: Present: normal affect, normal mood - Skin Skin exam: Present: warm, dry, intact, normal color. Absent: pallor Course Course Narrative: Patient was tachycardic on presentation. Patient hypertensive. Otherwise, the rest of the vitals within normal limits. 1L NS bolus started, Protonix IV given. Fentanyl given for pain control. Physical exam shows epigastric tenderness. Basic blood work shows stable hemoglobin. BMP shows no major abnormalities. Patient is given pain and nausea medication. Continues to have pain and nausea despite medication treatment here in the ED. Also concern for coffee-ground emesis. He has not had any episodes of coffee-ground emesis while waiting in the ED. Concerned that patient needs further evaluation by GI and possible repeat endoscopy for further evaluation. Vital Signs Temperature 97.8 F 04/11/18 03:35 Pulse Rate 128 04/11/18 03:35 Respiratory Rate 20 04/11/18 03:35 Blood Pressure 158/97 04/11/18 03:35 O2 Sat by Pulse Oximetry 95 04/11/18 03:35 Temperature 97.8 F 04/11/18 03:35 Pulse Rate 101 04/11/18 05:53 Respiratory Rate 20 04/11/18 05:53 Blood Pressure 157/105 04/11/18 05:53 O2 Sat by Pulse Oximetry 97 04/11/18 05:53 Oxygen Delivery Oxygen Delivery Room Air Abdominal Pain - MDM Narrative Medical decision making narrative: Patient was tachycardic on presentation. Patient hypertensive. Otherwise, the rest of the vitals within normal limits. 1L NS bolus started, Protonix IV given. Fentanyl given for pain control. Physical exam shows epigastric tenderness. Basic blood work shows stable hemoglobin. BMP shows no major abnormalities. Patient is given pain and nausea medication. Continues to have pain and nausea despite medication treatment here in the ED. Also concern for coffee-ground emesis. He has not had any episodes of coffee-ground emesis while waiting in the ED. Concerned that patient needs further evaluation by GI and possible repeat endoscopy for further evaluation. - Medical Records Medical records reviewed: Yes I reviewed the patient's medical records. - Lab Data Lab results reviewed: Yes I reviewed the patient's lab results. Result diagrams: 04/11/18 03:43 04/11/18 04:54 Lab Results 04/11/18 04/11/18 04/11/18 Range/Units 03:43 03:43 03:43 WBC 11.8 H (4.3-11.1) K/mcL RBC 5.32 (4.19-5.50) M/mcL Hgb 16.0 (12.9-16.9) g/dL Hct 46.3 (37.5-50.1) % MCV 87.0 (83.0-100.0) fL MCH 30.1 (28.0-33.3) pg MCHC 34.6 (31.6-35.5) g/dL RDW 13.9 (11.5-14.5) % Plt Count 367 (140-400) K/mcL MPV 9.4 (9.4-12.4) fL Immature Gran % 0.3 (0-4) % Seg Neutrophils % 70.5 % Lymphocytes % 20.7 % Monocytes % 7.2 % Eosinophils % 0.8 % Basophils % 0.5 % Neutrophils # 8.3 (1.6-8.9) K/mcL Lymphocytes # 2.4 (0.6-4.6) K/mcL Monocytes # 0.9 (0.0-1.3) K/mcL Eosinophils # 0.1 (0.0-0.6) K/mcL Basophils # 0.1 (0.0-0.2) K/mcL Sodium Cancelled Potassium Cancelled Chloride Cancelled Carbon Dioxide Cancelled BUN Cancelled Creatinine Cancelled Est GFR ( Amer) Cancelled Est GFR (Non-Af Amer) Cancelled BUN/Creatinine Ratio Cancelled Glucose Cancelled Calculated Osmolality Cancelled Calcium Cancelled Total Bilirubin Cancelled Direct Bilirubin Cancelled Indirect Bilirubin Cancelled AST Cancelled ALT Cancelled Alkaline Phosphatase Cancelled Troponin I < 0.03 (< 0.04) ng/mL Serum Total Protein Cancelled Albumin Cancelled Globulin Cancelled Albumin/Globulin Ratio Cancelled Amylase Cancelled Lipase Cancelled Specimen Rejected Blood Type A NEGATIVE Antibody Screen NEGATIVE 04/11/18 04/11/18 Range/Units 04:45 04:54 WBC (4.3-11.1) K/mcL RBC (4.19-5.50) M/mcL Hgb (12.9-16.9) g/dL Hct (37.5-50.1) % MCV (83.0-100.0) fL MCH (28.0-33.3) pg MCHC (31.6-35.5) g/dL RDW (11.5-14.5) % Plt Count (140-400) K/mcL MPV (9.4-12.4) fL Immature Gran % (0-4) % Seg Neutrophils % % Lymphocytes % % Monocytes % % Eosinophils % % Basophils % % Neutrophils # (1.6-8.9) K/mcL Lymphocytes # (0.6-4.6) K/mcL Monocytes # (0.0-1.3) K/mcL Eosinophils # (0.0-0.6) K/mcL Basophils # (0.0-0.2) K/mcL Sodium 136 Potassium 3.5 Chloride 107 Carbon Dioxide 25 BUN 14 Creatinine 0.88 Est GFR ( Amer) > 60 Est GFR (Non-Af Amer) > 60 BUN/Creatinine Ratio 16 Glucose 114 H Calculated Osmolality 283 Calcium 9.7 Total Bilirubin 0.7 Direct Bilirubin 0.1 Indirect Bilirubin 0.6 AST 14 ALT 11 Alkaline Phosphatase 83 Troponin I (< 0.04) ng/mL Serum Total Protein 7.3 Albumin 4.6 Globulin 2.7 Albumin/Globulin Ratio 1.7 Amylase 89 Lipase 27 Specimen Rejected Hemolyzed Blood Type Antibody Screen S.B.A.R. - S.B.A.R. Situation: Demographics, MOA Background: Presenting Complaint, Relevant PMH, Meds, & Allergies Assessment: Vital Signs, Course and respsone to treatment, Exam Concerns, Patient/Family Expectation, Pertinant Lab Results, Outstanding Labs Recommendation: Barrier(s) to disposition, Recommendation based on pending studies, treatments, or consults S.B.A.R. Report Given to: Dr. Sharma
[2018-04-11 04:12] LABS: Basophils # 0.1 K/mcL (0.0-0.2); Basophils % 0.5 %; Eosinophils # 0.1 K/mcL (0.0-0.6); Eosinophils % 0.8 %; Hematocrit 46.3 % (37.5-50.1); Immature Granulocytes % 0.3 % (0-4); Lymphocytes # 2.4 K/mcL (0.6-4.6); Lymphocytes % 20.7 %; Mean Corpuscular HGB Conc 34.6 g/dL (31.6-35.5); Mean Corpuscular Hemoglobin 30.1 pg (28.0-33.3); Mean Platelet Volume 9.4 fL (9.4-12.4); Monocytes # 0.9 K/mcL (0.0-1.3); Monocytes % 7.2 %; Neutrophils # 8.3 K/mcL (1.6-8.9); Platelet Count 367 K/mcL (140-400); Red Blood Count 5.32 M/mcL (4.19-5.50); Red Cell Distribution Width 13.9 % (11.5-14.5); Segmented Neutrophils % 70.5 %
[2018-04-11] MEDS ORDERED: Pantoprazole 40 MG VIAL IVP ONE (04:24)
[2018-04-11] MEDS ORDERED: 0.9 % Sodium Chloride 1,000 ML IVC ONE (04:25)
[2018-04-11] MEDS ORDERED: Ondansetron 4 MG/2 ML VIAL IVP ONE (04:25)
[2018-04-11] MEDS ORDERED: *HR* FentaNYL (PF) 100 MCG/2 ML VIAL IVP ONE (04:25)
[2018-04-11 05:24] LABS: Alanine Aminotransferase 11 Units/L (7-52); Albumin 4.6 g/dL (3.5-5.7); Albumin/Globulin Ratio 1.7 (1.1-2.2); Alkaline Phosphatase 83 Units/L (34-104); Amylase 89 Units/L (29-103); Aspartate Amino Transferase 14 Units/L (13-39); BUN/Creatinine Ratio 16 (6-26); Bilirubin,Direct 0.1 mg/dL (0.0-0.2); Bilirubin,Indirect 0.6 mg/dL (0.0-1.2); Bilirubin,Total 0.7 mg/dL (0.3-1.0); Blood Urea Nitrogen 14 mg/dL (6-20); Calcium 9.7 mg/dL (8.6-10.3); Carbon Dioxide 25 mEq/L (23-29); Chloride 107 mEq/L (98-107); Globulin 2.7 g/dL (2.4-3.5); Glucose 114 mg/dL (70-105); Lipase 27 Units/L (11-82); Osmolality,Calculated 283 (280-300); Potassium 3.5 mEq/L (3.5-5.1); Sodium 136 mEq/L (136-145); Total Protein 7.3 g/dL (6.4-8.9); eGFR For Non-African Americans > 60 (> 60)
--- NOTE | 2018-04-11 05:50 | Emergency Department Note ---
Disposition Clinical Impression: Epigastric pain, Hematemesis, Tachycardia Disposition: Admitted As Inpatient Condition: Good Abdominal Pain HPI - General Chief Complaint: ED Abdominal Pain Stated Complaint: GI BLEED Time Seen by Provider: 04/11/18 03:50 Source: patient, EMS Mode of arrival: ambulatory Nursing Notes Reviewed: Yes Vital Signs Reviewed: Yes - History of Present Illness Pain Scale: 10 - Related Data Home Medications Medication Instructions Recorded Confirmed Aspirin [Aspirin] 81 mg PO DAILY 03/27/18 04/11/18 Fluticasone Propionate Nasal 2 spr NS DAILY 03/27/18 04/11/18 [Flonase] Ipratropium/Albuterol Sulfate 1 puff PO QID 03/27/18 04/11/18 [Combivent Respimat 20-100 Mcg] Isosorbide MONOnitrate (24 HR) 60 mg PO DAILY 03/27/18 04/11/18 [Imdur] Lisinopril [Zestril] 20 mg PO DAILY 03/27/18 04/11/18 Metoprolol Tartrate [Metoprolol 50 mg PO DAILY 03/27/18 04/11/18 Tartrate] Pregabalin [Lyrica] 200 mg PO TID 03/27/18 04/11/18 Simvastatin [Zocor] 20 mg PO HS 03/27/18 04/11/18 Terazosin HCl [Terazosin HCl] 10 mg PO HS 03/27/18 04/11/18 Tizanidine HCl [Tizanidine HCl] 6 mg PO TID 03/27/18 04/11/18 Metformin HCl [Glucophage] 1,000 mg PO DAILY 04/02/18 04/11/18 Allergies Allergy/AdvReac Type Severity Reaction Status Date / Time celecoxib [From Celebrex] Allergy Swelling Verified 03/30/18 12:34 of Lip/Tongue/Throat gabapentin Allergy Difficulty Verified 03/30/18 12:34 Breathing lidocaine Allergy Difficulty Verified 03/30/18 12:34 Breathing Methadone Allergy Swelling Verified 03/30/18 12:34 of Lip/Tongue/Throat tramadol Allergy Difficulty Verified 03/30/18 12:34 Breathing acetaminophen AdvReac Vomiting Verified 03/30/18 12:34 [From Tylenol-Codeine #3] codeine AdvReac Vomiting Verified 03/30/18 12:34 [From Tylenol-Codeine #3] hydrocodone [From Vicodin] AdvReac Vomiting Verified 03/30/18 12:34 ibuprofen AdvReac Vomiting Verified 03/30/18 12:34 morphine AdvReac Vomiting Verified 03/30/18 12:34 Oxycodone [From OxyContin] AdvReac Vomiting Verified 03/30/18 12:34 pregabalin [From Lyrica] AdvReac Confusion Verified 03/30/18 12:34 Abdominal Pain PMH - Past Medical History Medical history: Reports: arthritis, COPD, DVT, hyperlipidemia, hypertension, myocardial infarction, other Male Surgical History: Reports: other Psychiatric history: Reports: no psych history - Social History Smoking status: Current every day smoker Alcohol use: Reports: none Drug use: Reports: none Physical Exam - General Limitations: no limitations General appearance: alert, in no apparent distress Course Vital Signs Temperature 97.8 F 04/11/18 03:35 Pulse Rate 128 04/11/18 03:35 Respiratory Rate 20 04/11/18 03:35 Blood Pressure 158/97 04/11/18 03:35 O2 Sat by Pulse Oximetry 95 04/11/18 03:35 Temperature 98.2 F 04/11/18 06:48 Pulse Rate 96 04/11/18 06:48 Respiratory Rate 15 04/11/18 06:48 Blood Pressure 153/95 04/11/18 06:48 O2 Sat by Pulse Oximetry 97 04/11/18 06:48 Oxygen Delivery Oxygen Delivery Room Air Abdominal Pain - Lab Data Result diagrams: 04/11/18 03:43 04/11/18 04:54 Lab Results 04/11/18 04/11/18 04/11/18 Range/Units 03:43 03:43 03:43 WBC 11.8 H (4.3-11.1) K/mcL RBC 5.32 (4.19-5.50) M/mcL Hgb 16.0 (12.9-16.9) g/dL Hct 46.3 (37.5-50.1) % MCV 87.0 (83.0-100.0) fL MCH 30.1 (28.0-33.3) pg MCHC 34.6 (31.6-35.5) g/dL RDW 13.9 (11.5-14.5) % Plt Count 367 (140-400) K/mcL MPV 9.4 (9.4-12.4) fL Immature Gran % 0.3 (0-4) % Seg Neutrophils % 70.5 % Lymphocytes % 20.7 % Monocytes % 7.2 % Eosinophils % 0.8 % Basophils % 0.5 % Neutrophils # 8.3 (1.6-8.9) K/mcL Lymphocytes # 2.4 (0.6-4.6) K/mcL Monocytes # 0.9 (0.0-1.3) K/mcL Eosinophils # 0.1 (0.0-0.6) K/mcL Basophils # 0.1 (0.0-0.2) K/mcL Sodium Cancelled Potassium Cancelled Chloride Cancelled Carbon Dioxide Cancelled BUN Cancelled Creatinine Cancelled Est GFR ( Amer) Cancelled Est GFR (Non-Af Amer) Cancelled BUN/Creatinine Ratio Cancelled Glucose Cancelled Calculated Osmolality Cancelled Calcium Cancelled Total Bilirubin Cancelled Direct Bilirubin Cancelled Indirect Bilirubin Cancelled AST Cancelled ALT Cancelled Alkaline Phosphatase Cancelled Troponin I < 0.03 (< 0.04) ng/mL Serum Total Protein Cancelled Albumin Cancelled Globulin Cancelled Albumin/Globulin Ratio Cancelled Amylase Cancelled Lipase Cancelled Specimen Rejected Blood Type A NEGATIVE Antibody Screen NEGATIVE 04/11/18 04/11/18 Range/Units 04:45 04:54 WBC (4.3-11.1) K/mcL RBC (4.19-5.50) M/mcL Hgb (12.9-16.9) g/dL Hct (37.5-50.1) % MCV (83.0-100.0) fL MCH (28.0-33.3) pg MCHC (31.6-35.5) g/dL RDW (11.5-14.5) % Plt Count (140-400) K/mcL MPV (9.4-12.4) fL Immature Gran % (0-4) % Seg Neutrophils % % Lymphocytes % % Monocytes % % Eosinophils % % Basophils % % Neutrophils # (1.6-8.9) K/mcL Lymphocytes # (0.6-4.6) K/mcL Monocytes # (0.0-1.3) K/mcL Eosinophils # (0.0-0.6) K/mcL Basophils # (0.0-0.2) K/mcL Sodium 136 Potassium 3.5 Chloride 107 Carbon Dioxide 25 BUN 14 Creatinine 0.88 Est GFR ( Amer) > 60 Est GFR (Non-Af Amer) > 60 BUN/Creatinine Ratio 16 Glucose 114 H Calculated Osmolality 283 Calcium 9.7 Total Bilirubin 0.7 Direct Bilirubin 0.1 Indirect Bilirubin 0.6 AST 14 ALT 11 Alkaline Phosphatase 83 Troponin I (< 0.04) ng/mL Serum Total Protein 7.3 Albumin 4.6 Globulin 2.7 Albumin/Globulin Ratio 1.7 Amylase 89 Lipase 27 Specimen Rejected Hemolyzed Blood Type Antibody Screen Attestation Statement - Attestation Attestation: I, Nico Gomez, examined this patient and my medical decision-making was reviewed with the FILM LOADER/PA/Advanced Practice Nurse/Resident Physician. I agree with the documented findings, disposition and treatment plan as described except to the extent set forth below. 47-year-old male presents emergency Department with concerns of epigastric pain and hematemesis. Patient states he has had persistent hematemesis since his most recent admission for metastasis. Patient states he had an endoscopy with Dr. Jolley where he apparently had repair of an ulcer in his stomach. Patient states he had significant worsening of his hematemesis today and worsening of his epigastric pain. Patient takes a daily aspirin but no other blood thinners. No other recent trauma. Patient is tachycardic on his arrival. He is not anemic at this point however he is at risk for worsening of his bleeding. Patient has a Glascow Blatchford scale of to which which him at high risk for requiring intervention. Patient will be admitted to the hospitalist for further care and evaluation.
[2018-04-11] MEDS ORDERED: OXYCODONE Oral CONC 10 MG/0.5 ML ORAL.SYG SL ONE (05:57)
--- NOTE | 2018-04-11 09:43 | Internal Med History&Physical ---
<Jerilyn Rich - Last Filed: 04/11/18 16:03> Date of Encounter: 04/11/18 Time of Encounter: 09:29 Internal Medicine - H&P: HPI Chief complaint: abdominal pain Admitted From: Home Plans for Post Hospital Care: Transfer Other History of present illness: Mr. Alcantara is a 47 year old male with history of COPD, HLD, DVT, KS and HTN for presented to the ED from home with abdominal pain of 6 weeks and coffee ground emesis . Described as constant stabbing epgastric pain - worse when he coughs. He underwent colonoscopy on 03-29-18 found polyp and EGD on 03-27 found gastritis and reflux esophagitis . He believes his condition was precipitated from a fall where he hit his back from T7 to L4 and his head which precipitated a seizure. Patient states his vomiting every 3 to 4 hours. Vomiting is often dark coffee grounds and others are bilious and mucous. Patient denies diarrhea, hematochezia, and fever. His pain was a 10/10 6 weeks ago and remains 10/10 on presentation. His last bowel movement was yesterday morning and claims it was normal. In ED, he presented with tachycardia of 128 that resolved and hypertension of 158/97 but remained stable. He was admitted and GI consulted - protonix IV and Zofran prn continued. Past Med Surg Social Fam HX - Past Medical History Source: patient Medical history: arthritis, COPD, DVT, hyperlipidemia, hypertension, myocardial infarction, other Additional medical history: GI BLEED , gastritis Psychiatric history: no psych history - Past Surgical History Surgical History: cholecystectomy Additional surgical history: facial reconstruction, removal of crushed rt testicle, 13 abdomen surgeries, right knee - Social History Smoking Status: Current every day smoker Smokeless Tobacco Status: No Alcohol use: none Drug use: none - Family History Mother Living Status: Hx Family Cardiac Disorders: Yes (stroke) Internal Medicine - H&P: Meds Aspirin 81 mg PO DAILY 03/27/18 [History] Fluticasone Propionate Nasal [Flonase] 2 spr NS DAILY 03/27/18 [History] Ipratropium/Albuterol Sulfate [Combivent Respimat 20-100 Mcg] 1 puff PO QID [History] Isosorbide MONOnitrate (24 HR) [Imdur] 60 mg PO DAILY 03/27/18 [History] Lisinopril [Zestril] 20 mg PO DAILY 03/27/18 [History] Metoprolol Tartrate 50 mg PO DAILY 03/27/18 [History] Pregabalin [Lyrica] 200 mg PO TID 03/27/18 [History] Simvastatin [Zocor] 20 mg PO HS 03/27/18 [History] Terazosin HCl 10 mg PO HS 03/27/18 [History] Tizanidine HCl 6 mg PO TID 03/27/18 [History] Metformin HCl [Glucophage] 1,000 mg PO DAILY 04/02/18 [History] Albuterol Sulfate [Ventolin Hfa] 2 puff PO Q4H PRN 04/11/18 [History] Ondansetron [Zofran] 4 mg IVP Q6HR PRN vial 04/11/18 [Rx] Pantoprazole [Protonix] 40 mg IVP DAILY vial 04/11/18 [Rx] Sucralfate [Carafate] 1 gm PO QIDAC #0 tablet 04/11/18 [Rx] 3 Allergy/AdvReac Type Severity Reaction Status Date / Time celecoxib [From Celebrex] Allergy Swelling Verified 04/11/18 08:33 of Lip/Tongue/Throat lidocaine Allergy Hives Verified 04/11/18 08:33 Methadone Allergy Swelling Verified 04/11/18 08:33 of Lip/Tongue/Throat tramadol Allergy Difficulty Verified 04/11/18 08:33 Breathing acetaminophen AdvReac Vomiting Verified 04/11/18 08:33 [From Tylenol-Codeine #3] codeine AdvReac Vomiting Verified 04/11/18 08:33 [From Tylenol-Codeine #3] gabapentin AdvReac Itching Verified 04/11/18 08:33 hydrocodone [From Vicodin] AdvReac Vomiting Verified 04/11/18 08:33 ibuprofen AdvReac Vomiting Verified 04/11/18 08:33 morphine AdvReac Vomiting Verified 04/11/18 08:33 All Systems PM: A 10-system review of systems was performed and is negative for pertinent findings except as documented above in the HPI. - Constitutional Constitutional: as per HPI, fatigue, weight loss, no chills - Cardiovascular Cardiovascular ROS IM: edema, no chest pain, no dyspnea - Respiratory Respiratory: pain with cough, no cough, no dyspnea - Gastrointestinal Gastrointestinal: as per HPI, no constipation, no diarrhea - Musculoskeletal Musculoskeletal ROS IM: neck pain - Hematologic/Lymphatic Hematologic/Lymphatic: as per HPI - Constitutional Vitals: Temp Pulse Resp BP Pulse Ox 98.2 F 96 15 153/95 97 04/11/18 06:48 04/11/18 06:48 04/11/18 06:48 04/11/18 06:48 04/11/18 06:48 General appearance: Present: cachectic, cooperative, mild distress, A&O X 3, answers questions appropriately - Head Head exam: Present: atraumatic, normocephalic - Respiratory Respiratory exam: Present: CTAB. Absent: rales, wheezes - Cardiovascular Cardiovascular exam: Present: RRR. Absent: gallop, rubs - GI/Abdominal GI/Abdominal exam: Present: guarding, normal bowel sounds, soft, tenderness. Absent: hepatomegaly, mass Additional comments: epigastric tenderness Internal Med - H&P Results - Labs CBC & Chem 7: 04/11/18 03:43 04/11/18 04:54 - Assessment and plan (1) Epigastric pain Current Visit: Yes Status: Acute Assessment and plan: consulted GI: - IV protonix - zofran PRN - follow WBC of 11.8 (2) Protein calorie malnutrition Current Visit: Yes Status: Acute Assessment and plan: unknown etiology after extensive GI work up with EGD and colonscopy on last admission late March - consult nutrition - urine drug screen Qualifiers: Qualified Code(s): E46 - Unspecified protein-calorie malnutrition (3) Weight loss, unintentional Current Visit: Yes Status: Acute Assessment and plan: weight loss of 48 lbs in 3 months with unknown etiology - advance diet as tolerated (4) Coffee ground emesis Current Visit: Yes Status: Acute Assessment and plan: see epigastric pain - start carafate - Time Spent With Patient Total time spent is greater than 50% in coordination of care (as documented) at patient's floor/unit and/or counseling patient: Greater than 35 minutes <Janna Beaver - Last Filed: 04/11/18 18:17> Date of Encounter: 04/11/18 Internal Medicine - H&P: HPI History of present illness: Mr. Alcantara is a 47 year old male All Systems PM: A 10-system review of systems was performed and is negative for pertinent findings except as documented above in the HPI. - Constitutional Vitals: Temp Pulse Resp BP Pulse Ox 98.3 F 94 16 143/86 98 04/11/18 14:20 04/11/18 14:20 04/11/18 14:20 04/11/18 14:20 04/11/18 14:20 Internal Med - H&P Results - Labs CBC & Chem 7: 04/11/18 03:43 04/11/18 04:54 - Attending Attestation I examined this patient and my medical decision-making was reviewed with the Resident Physician Dr. Rich. I agree with the documented findings, disposition and treatment plan as described except to the extent set forth below. Mr. Alcantara is a 47 y/o M with known PMH of gastritis, GI bleed, COPD, CAD , Tobacco dependence, profound weight loss pt who was hospitalized here multiple times with in last 2 months, left AMA last two times, now he presented to ER with hematemesis and intractable N/V. He denied any CP. Gen: A, A< O 3 Chest: Diminished BS b/l Heart: S1S2+ RRR Abd: Soft, moderate tenderness epigastric region a/p 1. Acute intarctable N/V 2. Acute upper GI bleed / Hematemesis so far stable Hb cont close monitoring of Hb 3. Severe weight loss 4. Severe PCM Talked to GI about this Recommend to transfer to [facility] for further higher level of care since we were not able to figure it out about his weight loss will contact [facility] today - Time Spent With Patient Total time spent is greater than 50% in coordination of care (as documented) at patient's floor/unit and/or counseling patient:
--- NOTE | 2018-04-11 10:52 | Gastroenterology Consult Note ---
<Olvin Cruz - Last Filed: 04/11/18 10:50> Date of Encounter: 04/11/18 Time of Encounter: 10:00 - Assessment and plan (1) Weight loss, unintentional Status: Acute Assessment and plan: On 03/30/18 weight 123 lbs, on 04/02/2018 118 lbs, on admission 108 lbs. Patient reports his weight was around 150 lbs three months ago. Recent EGD showed reflux esophagitis, gastritis and non-bleeding angiodysplasia and colonoscopy with 15 mm tubular adenoma and internal hemorrhoids. CEA 1.6 and CA 19-9 was [address] 03/29/18. Dr[address] Jolley recommend transferring patient to [facility] for further evaluation to determine cause of his continued weight loss. (2) Coffee ground emesis Status: Acute Assessment and plan: Hgb 16 on admission. Continue to monitor CBC. Dr. Jolley recommends transferring patient to [facility] for further evaluation. (3) Epigastric pain Status: Acute Assessment and plan: Recommend daily PPI. Patient educated regarding lifestyle modifications including: (1) avoidance of foods that may precipitate reflux (eg, coffee, alcohol, chocolate, fatty foods) . (2) avoidance of acidic foods that may precipitate heartburn (eg, citrus, carbonated drinks, spicy foods). (3) adoption of behaviors that may reduce esophageal acid exposure (see weight loss, smoking cessation, raising the head of the bed, and avoiding recumbency for 2-3 hours after meals). - Time Spent With Patient Total time spent is greater than 50% in coordination of care (as documented) at patient's floor/unit and/or counseling patient: GI History of Present Illness - Data of Consult Patient: known to practice within the last 3 years Consult date: 04/11/18 Requesting Physician: Lawson Sharma MD - Consult Narrative Reason for consult: Possible upper GI bleed History of present illness: Mr. Alcantara is a 47 year old male with PMHx of COPD, CAD with myocardial infarction 5, CVA, weight loss, hematemesis who presented to the ED with black coffee-ground emesis and epigastric pain. He was recently admitted and had EGD and colonoscopy 03/2018 and left the hospital AMA on 03/29/2018. EGD showed reflux esophagitis, gastritis and non-bleeding angiodysplasia. Colonoscopy with 15 mm tubular adenoma and internal hemorrhoids. He continues to lose weight. On 03/30/18 weight 123 lbs, on 04/02/2018 118 lbs, on admission 108 lbs. Hgb on admission was 16. He denies any hematemesis, melena, or hematochezia. He was readmitted on 04/02/18 for evaluation of abdominal pain, and left AMA on 2017. Procedures: Colonoscopy 03/29/2018 Dr. Jolley: 15 mm sigmoid tubular adenoma, non -bleeding internal hemorrhoids. EGD 03/27/2018 Dr. 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 NSAIDs: ASA Anticoagulation: None Past Med Surg Social Fam HX - Past Medical History Medical history: arthritis, COPD, DVT, hyperlipidemia, hypertension, myocardial infarction, other Additional medical history: GI BLEED Psychiatric history: no psych history - Past Surgical History Surgical History: cholecystectomy Additional surgical history: facial reconstruction, removal of crushed rt testicle, 13 abdomen surgeries, right knee - Social History Smoking Status: Current every day smoker Smokeless Tobacco Status: No Alcohol use: none Drug use: none - Gastrointestinal Gastrointestinal: Present: as per HPI - Constitutional Constitutional: as per HPI - EENT Eyes: as per HPI Ears: Present: as per HPI Nose, mouth and throat: Present: as per HPI - Cardiovascular Cardiovascular ROS: Present: as per HPI - Respiratory Respiratory IM: Present: as per HPI - Genitourinary Genitourinary: Absent: change in color, Urinary frequency - Neurological ROS Neurological GI: Present: as per HPI - Hematologic/Lymphatic Hematologic/Lymphatic pediatric: Present: as per HPI - Musculoskeletal Musculoskeletal ROS GI: Present: as per HPI - Integumentary Integumentary GI: Present: as per HPI - Psychiatric ROS Psychiatric GI: Present: as per HPI - Endocrine Endocrine IM: Present: as per HPI - Constitutional Vitals: Temp Pulse Resp BP Pulse Ox 98.2 F 88 15 146/80 97 04/11/18 10:33 04/11/18 10:33 04/11/18 10:33 04/11/18 10:33 04/11/18 10:33 General appearance: Present: cooperative, A&O X 3, no acute distress, answers questions appropriately - Head Head exam: Present: atraumatic, normocephalic - Eye Eye exam: Present: normal appearance, sclera anicteric - ENT ENT exam: Present: mucous membranes dry - Neck Neck exam general surgery: Present: normal inspection, trachea midline - Respiratory Respiratory exam: Present: CTAB. Absent: rales, rhonchi - Cardiovascular Cardiovascular exam: Present: RRR, +S1, +S2 - GI/Abdominal GI/Abdominal exam: Present: soft, tenderness (generalized), no peritoneal signs. Absent: distended, firm, guarding - Rectal Rectal exam: Present: deferred - Extremities Exam Extremities exam: Present: warm - Neurological Exam Neurological exam: Present: no focal deficits - Psychiatric Psychiatric exam: Present: normal affect, normal mood - Skin Skin exam: Present: dry, intact, normal color, warm Results - Labs CBC & Chem 7: 04/11/18 03:43 04/11/18 04:54 Labs: Last Result Calcium 9.7 mg/dL (8.6-10.3) 04/11/18 04:54 Troponin I < 0.03 ng/mL (< 0.04) 04/11/18 03:43 Entire Visit Hgb 16.0 g/dL (12.9-16.9) 04/11/18 03:43 Hct 46.3 % (37.5-50.1) 04/11/18 03:43 Total Bilirubin 0.7 mg/dL (0.3-1.0) 04/11/18 04:54 AST 14 Units/L (13-39) 04/11/18 04:54 ALT 11 Units/L (7-52) 04/11/18 04:54 Amylase 89 Units/L (29-103) 04/11/18 04:54 Lipase 27 Units/L (11-82) 04/11/18 04:54 Consult Discharge Plan - Plan Referrals: Lyndsey Walls [Primary Care Provider] - <Sheldon Jolley - Last Filed: 04/22/18 04:30> Date of Encounter: 04/11/18 - Time Spent With Patient Total time spent is greater than 50% in coordination of care (as documented) at patient's floor/unit and/or counseling patient: GI History of Present Illness - Data of Consult Requesting Physician: Lawson Sharma MD - Consult Narrative History of present illness: Mr. Alcantara is a 47 year old male Past Med Surg Social Fam HX - Family History Mother Living Status: Hx Family Cardiac Disorders: Yes (stroke) - Constitutional Vitals: Temp Pulse Resp BP Pulse Ox 98.3 F 94 16 143/86 98 04/11/18 14:20 04/11/18 14:20 04/11/18 14:20 04/11/18 14:20 04/11/18 14:20 Results - Labs CBC & Chem 7: 04/11/18 03:43 04/11/18 04:54 Labs: Last Result Calcium 9.7 mg/dL (8.6-10.3) 04/11/18 04:54 Troponin I < 0.03 ng/mL (< 0.04) 04/11/18 03:43 Entire Visit Hgb 16.0 g/dL (12.9-16.9) 04/11/18 03:43 Hct 46.3 % (37.5-50.1) 04/11/18 03:43 Total Bilirubin 0.7 mg/dL (0.3-1.0) 04/11/18 04:54 AST 14 Units/L (13-39) 04/11/18 04:54 ALT 11 Units/L (7-52) 04/11/18 04:54 Amylase 89 Units/L (29-103) 04/11/18 04:54 Lipase 27 Units/L (11-82) 04/11/18 04:54 - Attending Attestation Mr Alcantara is known to us from a previous admission just a couple of days ago. He had an EGD and colonoscopy which essentially did not explain his pain nor the reason for his profound continuing weight loss. He also has significant back pain and signed out AMA last admission but, came for an appointment that we called him for. He was readmitted. His scans have been noncontirbutory which I have reviewed myself. Feel he should be transferred to [facility] for further workup and a definitive diagnosis as we have not been able to find one yet and time is of the utmost essence.
[2018-04-11] MEDS ORDERED: Naloxone 0.4 MG/ML INJ IVP PRN (10:58)
[2018-04-11] MEDS ORDERED: Ondansetron 4 MG/2 ML VIAL IVP PRN (11:05)
[2018-04-11] MEDS ORDERED: Pantoprazole 40 MG VIAL IVP SCH (11:15)
[2018-04-11] MEDS: Sucralfate 1 GM TABLET PO SCH ×2 (12:29→16:12)
[2018-04-11 14:21] VITALS: BP 143/86
--- NOTE | 2018-04-11 16:12 | Discharge Summary ---
<Jerilyn Rich - Last Filed: 04/11/18 18:40> - NOTES TO OUTPATIENT PROVIDER Notes to Outpatient Provider: Transfer to be evaluated for continued weight loss Orders not resulted at time of discharge: Pending orders 04/11/18 11:25 Drug Screen, Urine [UCHEM] Routine 04/12/18 04:00 Basic Metabolic Panel AM 0400 Complete Blood Count [HEME] AM 0400 Date of Encounter: 04/11/18 Time of Encounter: 16:09 - Discharge Diagnosis (1) Epigastric pain Priority: Primary Status: Acute (2) Protein calorie malnutrition Priority: Secondary Status: Acute Qualifiers: Qualified Code(s): E46 - Unspecified protein-calorie malnutrition (3) Weight loss, unintentional Priority: Secondary Status: Acute (4) Coffee ground emesis Priority: Secondary Status: Acute Hospital course: Mr. Alcantara is a 47 year old male with history of COPD, HLD, DVT, [place] and HTN for presented to the ED from home with abdominal pain of 6 weeks and coffee ground emesis . Described as constant stabbing epgastric pain - worse when he coughs. He underwent colonoscopy on 03-29-18 found polyp and EGD on 03-27 found gastritis and reflux esophagitis . He believes his condition was precipitated from a fall where he hit his back from T7 to L4 and his head which precipitated a seizure. Patient states his vomiting every 3 to 4 hours. Vomiting is often dark coffee grounds and others are bilious and mucous. Patient denies diarrhea, hematochezia, and fever. His pain was a 10/10 6 weeks ago and remains 10/10 on presentation. His last bowel movement was yesterday morning and claims it was normal. In ED, he presented with tachycardia of 128 that resolved and hypertension of 158/97 but remained stable. He was admitted and protonix IV & Zofran prn continued. GI consulted and advised that after EGD & colonoscopy on last visit plus previous outpatient follow up- they have exhausted all they have to offer. GI suggested transfer up to [facility] for evaluation of his continue weight loss as we do not have acquit explanation. At [facility] accepting doctor is name Dr Lazcano on [facility]. Per 3a floor city secretary they will call us when bed is available. We did not get results of urine drug screen. Patient remains stable Discharge discussed with: patient Time spent discussing smoking cessation with patient: more than 10 minutes - Time Spent with Patient Total time spent providing and/or coordinating discharge services: Greater than 30 minutes - Discharge Medications Home Medications: Aspirin 81 mg PO DAILY 03/27/18 [History] Fluticasone Propionate Nasal [Flonase] 2 spr NS DAILY 03/27/18 [History] Ipratropium/Albuterol Sulfate [Combivent Respimat 20-100 Mcg] 1 puff PO QID [History] Isosorbide MONOnitrate (24 HR) [Imdur] 60 mg PO DAILY 03/27/18 [History] Lisinopril [Zestril] 20 mg PO DAILY 03/27/18 [History] Metoprolol Tartrate 50 mg PO DAILY 03/27/18 [History] Pregabalin [Lyrica] 200 mg PO TID 03/27/18 [History] Simvastatin [Zocor] 20 mg PO HS 03/27/18 [History] Terazosin HCl 10 mg PO HS 03/27/18 [History] Tizanidine HCl 6 mg PO TID 03/27/18 [History] Metformin HCl [Glucophage] 1,000 mg PO DAILY 04/02/18 [History] Albuterol Sulfate [Ventolin Hfa] 2 puff PO Q4H PRN 04/11/18 [History] Ondansetron [Zofran] 4 mg IVP Q6HR PRN vial 04/11/18 [Rx] Pantoprazole [Protonix] 40 mg IVP DAILY vial 04/11/18 [Rx] Sucralfate [Carafate] 1 gm PO QIDAC #0 tablet 04/11/18 [Rx] Allergies/Adverse Reactions: 3 Allergy/AdvReac Type Severity Reaction Status Date / Time celecoxib [From Celebrex] Allergy Swelling Verified 04/11/18 08:33 of Lip/Tongue/Throat lidocaine Allergy Hives Verified 04/11/18 08:33 Methadone Allergy Swelling Verified 04/11/18 08:33 of Lip/Tongue/Throat tramadol Allergy Difficulty Verified 04/11/18 08:33 Breathing acetaminophen AdvReac Vomiting Verified 04/11/18 08:33 [From Tylenol-Codeine #3] codeine AdvReac Vomiting Verified 04/11/18 08:33 [From Tylenol-Codeine #3] gabapentin AdvReac Itching Verified 04/11/18 08:33 hydrocodone [From Vicodin] AdvReac Vomiting Verified 04/11/18 08:33 ibuprofen AdvReac Vomiting Verified 04/11/18 08:33 morphine AdvReac Vomiting Verified 04/11/18 08:33 Date of admission: 04/11/18 06:20 Primary care physician: Lyndsey Walls Consults: 04/11/18 11:21 Consult to Nutrition [CONS] Routine Comment: protien calorie malnutition Consulting Provider: NUTRITION Reason for Dietary Consult: PO Supplementation Discharging clinician: Jerilyn Rich Anticipated date of discharge: 04/12/18 - Constitutional Vitals: Temp Pulse Resp BP Pulse Ox 98.3 F 94 16 143/86 98 04/11/18 14:20 04/11/18 14:20 04/11/18 14:20 04/11/18 14:20 04/11/18 14:20 General appearance: Present: cachectic, cooperative, mild distress, A&O X 3, answers questions appropriately - Head Head exam: Present: atraumatic, normocephalic - Eye Eye exam: Present: sclera anicteric Pupils: Present: PERRL - Neck Neck exam general surgery: Present: lymphadenopathy - Respiratory Respiratory exam: Present: CTAB. Absent: accessory muscle use, rales, rhonchi, wheezes - Cardiovascular Cardiovascular exam: Present: RRR, +S1, +S2. Absent: diastolic murmur, gallop, rubs, systolic murmur - GI/Abdominal GI/Abdominal exam: Present: guarding, normal bowel sounds, soft, tenderness, no peritoneal signs. Absent: distended Additional comments: epigastric - Extremities Exam Extremities exam: Present: warm, radial pulses palpable and symmetrical. Absent : calf tenderness, cyanotic, pedal edema - Neurological Exam Neurological exam: Present: oriented X3, no focal deficits. Absent: pronater drift, facial droop, speech deficit - Skin Skin exam: Present: dry, intact - Patient Status Disposition: Transfer Critical Access Hosp Condition: Good Functional capacity at discharge: independent ambulation Overall status at discharge: patient is not back to baseline - Discharge Instructions Follow Up With: Lyndsey Walls [Primary Care Provider] - - Diet and Activity Activity: increase activity as tolerated Diet: advance to your usual diet <Janna Beaver - Last Filed: 04/12/18 07:44> Orders not resulted at time of discharge: Pending orders 04/11/18 11:25 Drug Screen, Urine [UCHEM] Routine Date of Encounter: 04/11/18 Hospital course: Mr. Alcantara is a 47 year old male - Time Spent with Patient Total time spent providing and/or coordinating discharge services: Date of admission: 04/11/18 06:20 Primary care physician: Lyndsey Walls Consults: 04/11/18 11:21 Consult to Nutrition [CONS] Routine Comment: protien calorie malnutition Consulting Provider: NUTRITION Reason for Dietary Consult: PO Supplementation - Constitutional Vitals: Temp Pulse Resp BP Pulse Ox 98.3 F 94 16 143/86 98 04/11/18 14:20 04/11/18 14:20 04/11/18 14:20 04/11/18 14:20 04/11/18 14:20 - Attending Attestation I examined this patient and my medical decision-making was reviewed with the Resident Physician Dr. Rich. I agree with the documented findings, disposition and treatment plan as described except to the extent set forth below. Mr. Alcantara is a 47 y/o M with known PMH of gastritis, GI bleed, COPD, CAD , Tobacco dependence, profound weight loss pt who was hospitalized here multiple times with in last 2 months, left AMA last two times, now he presented to ER with hematemesis and intractable N/V. He denied any CP. Gen: A, A, O 3 Chest: Diminished BS b/l Heart: S1S2+ RRR Abd: Soft, moderate tenderness epigastric region a/p 1. Acute intractable N/V 2. Acute upper GI bleed / Hematemesis so far stable Hb cont close monitoring of Hb 3. Severe weight loss 4. Severe PCM GI recommend to transfer to [facility] for further care. So will transfer him to [facility] today.
[2018-04-11] MEDS ORDERED: *HR* FentaNYL (PF) 100 MCG/2 ML VIAL IVP PRN (16:59)
== END 2018-04-11 18:56 | disposition critical access hospital (66) ==
LOC: EMEROO 03:30 → 3ANU 03:30
PROVIDERS: ADMIT Family Medicine; ATTEND Family Medicine

== ENCOUNTER 2019-08-06 08:44 | Observation (INO) ==
[2019-08-06] MEDS ORDERED: Isovue-370 500 ML BOTTLE IVP ONE (09:55)
[2019-08-06] MEDS ORDERED: *HR* Promethazine 25 MG/ML VIAL IVP ONE (09:55)
[2019-08-06] MEDS ORDERED: *HR* FentaNYL (PF) 100 MCG/2 ML VIAL IVP ONE (09:55)
[2019-08-06 10:42] LABS: Basophils % 0.4 %; Eosinophils # 0.1 K/mcL (0.0-0.6); Eosinophils % 1.8 %; Hematocrit 44.6 % (37.5-50.1); Hemoglobin 15.7 g/dL (12.9-16.9); Immature Granulocytes % 0.1 % (0-4); Lymphocytes % 27.3 %; Mean Corpuscular HGB Conc 35.2 g/dL (31.6-35.5); Mean Platelet Volume 10.2 fL (9.4-12.4); Monocytes # 0.7 K/mcL (0.0-1.3); Monocytes % 9.1 %; Neutrophils # 4.4 K/mcL (1.6-8.9); Platelet Count 265 K/mcL (140-400); Red Cell Distribution Width 12.1 % (11.5-14.5); Segmented Neutrophils % 61.3 %; White Blood Count 7.2 K/mcL (4.3-11.1)
[2019-08-06] MEDS: 0.9 % Sodium Chloride 1,000 ML IVC ONE (10:54)
[2019-08-06 11:04] LABS: Alanine Aminotransferase 28 Units/L (7-52); Albumin 4.4 g/dL (3.5-5.7); Albumin/Globulin Ratio 1.8 (1.1-2.2); Alkaline Phosphatase 66 Units/L (34-104); Aspartate Amino Transferase 25 Units/L (13-39); Bilirubin,Total 0.9 mg/dL (0.3-1.0); Blood Urea Nitrogen 8 mg/dL (6-20); Calcium 9.7 mg/dL (8.6-10.3); Carbon Dioxide 32 mEq/L (23-29); Chloride 96 mEq/L (98-107); Globulin 2.4 g/dL (2.4-3.5); Glucose 117 mg/dL (70-105); Lipase 22 Units/L (11-82); Osmolality,Calculated 283 (280-300); Potassium 2.8 mEq/L (3.5-5.1); Sodium 137 mEq/L (136-145); Total Protein 6.8 g/dL (6.4-8.9)
[2019-08-06 11:50] LABS: BUN/Creatinine Ratio 10 (6-26); eGFR For African Americans > 60 (> 60); eGFR For Non-African Americans > 60 (> 60)
[2019-08-06 12:19] LABS: Bilirubin,Urine Negative (Negative); Blood,Urine Negative (Negative); Color,Urine Yellow (Yellow); Glucose,Urine (UA) Normal (Normal); Ketones,Urine 15 mg/dL (Negative); Leukocyte Esterase,Urine Negative (Negative); Nitrite,Urine Negative (Negative); PH,Urine 7.5 pH Units (5.0-8.0); Protein,Urine Negative (Neg-Trace); Specific Gravity,Urine 1.009 (1.010-1.025); Urobilinogen,Urine Normal (Normal)
[2019-08-06 12:23] LABS: Clarity,Urine Clear (Clear)
[2019-08-06] MEDS ORDERED: Ondansetron 4 MG/2 ML VIAL IVP ONE (14:22)
[2019-08-06] MEDS ORDERED: MetroNIDAZOLE 500 MG/100 ML 500 MG/100 ML BAG IVPB ONE (14:29)
[2019-08-06] MEDS ORDERED: 0.9 % Sodium Chloride 1,000 ML ONE (14:55)
[2019-08-06] MEDS ORDERED: *HR* HYDROcodone/Acet 5/325 mg TABLET PO PRN (16:24)
[2019-08-06] MEDS ORDERED: Acetaminophen 325 MG TABLET PO PRN (16:24)
[2019-08-06] MEDS ORDERED: Naloxone 0.4 MG/ML INJ IVP PRN (16:24)
[2019-08-06] MEDS ORDERED: *HR* OxyCODONE Immed Rel 5 MG TABLET PO PRN (16:24)
[2019-08-06] MEDS ORDERED: *HR* FentaNYL (PF) 100 MCG/2 ML VIAL IVP PRN (17:05)
[2019-08-06] MEDS ORDERED: GI Cocktail 40 ML EACH PO ONE (17:06)
[2019-08-06 17:50] LABS: Magnesium 2.1 mg/dL (1.6-2.6)
[2019-08-06] MEDS: 0.9 % Sodium Chloride 1,000 ML IVC SCH ×2 (18:16→20:33)
[2019-08-06] MEDS: Ipratropium/Albuterol Neb 3 ML IH SCH ×3 (18:16→22:33)
[2019-08-06] MEDS: tiZANidine 4 MG TABLET PO SCH (20:19)
[2019-08-06] MEDS: Ondansetron 4 MG/2 ML VIAL IVP PRN (20:20)
[2019-08-07] MEDS: MetroNIDAZOLE 500 MG/100 ML 500 MG/100 ML BAG IVPB SCH ×3 (00:04→16:01)
[2019-08-07] MEDS: *HR* Promethazine 25 MG/ML VIAL IVP PRN ×2 (03:14→16:05)
[2019-08-07] MEDS: 0.9 % Sodium Chloride 1,000 ML IVC SCH (03:22)
[2019-08-07] MEDS: Ipratropium/Albuterol Neb 3 ML IH SCH ×4 (04:16→21:58)
[2019-08-07] MEDS: Lisinopril 20 MG TABLET PO SCH (08:16)
[2019-08-07] MEDS: Isosorbide MONOnitrate (24 HR) 60 MG TAB.ER.24H PO SCH (08:16)
[2019-08-07] MEDS: tiZANidine 4 MG TABLET PO SCH ×3 (08:16→20:18)
[2019-08-07] MEDS: Aspirin 81 MG TAB.CHEW PO SCH (08:17)
[2019-08-07 09:22] LABS: Basophils % 0.5 %; Eosinophils # 0.3 K/mcL (0.0-0.6); Eosinophils % 3.1 %; Hematocrit 36.4 % (37.5-50.1); Immature Granulocytes % 0.2 % (0-4); Lymphocytes # 2.6 K/mcL (0.6-4.6); Lymphocytes % 30.9 %; Mean Corpuscular Hemoglobin 32.1 pg (28.0-33.3); Mean Corpuscular Volume 89.2 fL (83.0-100.0); Mean Platelet Volume 10.8 fL (9.4-12.4); Monocytes # 0.7 K/mcL (0.0-1.3); Monocytes % 8.2 %; Neutrophils # 4.8 K/mcL (1.6-8.9); Platelet Count 227 K/mcL (140-400); Red Blood Count 4.08 M/mcL (4.19-5.50); Red Cell Distribution Width 12.3 % (11.5-14.5); Segmented Neutrophils % 57.1 %; White Blood Count 8.4 K/mcL (4.3-11.1)
[2019-08-07 09:30] LABS: Hemoglobin 13.1 g/dL (12.9-16.9)
[2019-08-07 09:32] LABS: BUN/Creatinine Ratio 8 (6-26); Blood Urea Nitrogen 6 mg/dL (6-20); Calcium 8.3 mg/dL (8.6-10.3); Carbon Dioxide 24 mEq/L (23-29); Chloride 104 mEq/L (98-107); Glucose 100 mg/dL (70-105); Osmolality,Calculated 284 (280-300); Potassium 2.7 mEq/L (3.5-5.1); Sodium 138 mEq/L (136-145); eGFR For African Americans > 60 (> 60); eGFR For Non-African Americans > 60 (> 60)
[2019-08-07] MEDS: Ondansetron 4 MG/2 ML VIAL IVP PRN (09:35)
[2019-08-07] MEDS ORDERED: 0.9 % Sodium Chloride 1,000 ML IVC ONE (10:39)
[2019-08-07] MEDS ORDERED: 0.9 % Sodium Chloride 1,000 ML ONE (10:42)
[2019-08-07] MEDS: 0.9 % Sodium Chloride 1,000 ML IVC ONE (10:44)
[2019-08-08] MEDS: MetroNIDAZOLE 500 MG/100 ML 500 MG/100 ML BAG IVPB SCH ×4 (00:20→23:55)
[2019-08-08] MEDS: Ipratropium/Albuterol Neb 3 ML IH SCH ×4 (03:48→21:17)
[2019-08-08] MEDS: *HR* Promethazine 25 MG/ML VIAL IVP PRN (05:26)
[2019-08-08 06:26] LABS: Basophils # 0.1 K/mcL (0.0-0.2); Basophils % 0.6 %; Eosinophils # 0.5 K/mcL (0.0-0.6); Eosinophils % 4.8 %; Hematocrit 35.3 % (37.5-50.1); Hemoglobin 12.1 g/dL (12.9-16.9); Immature Granulocytes % 0.2 % (0-4); Lymphocytes # 3.2 K/mcL (0.6-4.6); Lymphocytes % 32.6 %; Mean Corpuscular HGB Conc 34.3 g/dL (31.6-35.5); Mean Corpuscular Hemoglobin 32.4 pg (28.0-33.3); Mean Corpuscular Volume 94.4 fL (83.0-100.0); Mean Platelet Volume 10.7 fL (9.4-12.4); Monocytes # 0.8 K/mcL (0.0-1.3); Monocytes % 8.2 %; Neutrophils # 5.2 K/mcL (1.6-8.9); Platelet Count 222 K/mcL (140-400); Red Blood Count 3.74 M/mcL (4.19-5.50); Red Cell Distribution Width 12.5 % (11.5-14.5); Segmented Neutrophils % 53.6 %; White Blood Count 9.7 K/mcL (4.3-11.1)
[2019-08-08 08:42] LABS: BUN/Creatinine Ratio 11 (6-26); Blood Urea Nitrogen 9 mg/dL (6-20); Calcium 8.2 mg/dL (8.6-10.3); Carbon Dioxide 27 mEq/L (23-29); Chloride 105 mEq/L (98-107); Glucose 117 mg/dL (70-105); Osmolality,Calculated 292 (280-300); Potassium 3.6 mEq/L (3.5-5.1); Sodium 141 mEq/L (136-145); eGFR For African Americans > 60 (> 60); eGFR For Non-African Americans > 60 (> 60)
[2019-08-08] MEDS: Isosorbide MONOnitrate (24 HR) 60 MG TAB.ER.24H PO SCH (09:00)
[2019-08-08] MEDS: tiZANidine 4 MG TABLET PO SCH ×3 (09:00→20:33)
[2019-08-08] MEDS: Lisinopril 20 MG TABLET PO SCH (09:00)
[2019-08-08] MEDS: Aspirin 81 MG TAB.CHEW PO SCH (09:01)
[2019-08-08] MEDS: Ondansetron 4 MG/2 ML VIAL IVP PRN ×2 (11:54→20:34)
[2019-08-09 01:27] LABS: Basophils # 0.1 K/mcL (0.0-0.2); Basophils % 0.6 %; Eosinophils # 0.5 K/mcL (0.0-0.6); Eosinophils % 6.1 %; Hematocrit 34.9 % (37.5-50.1); Hemoglobin 12.4 g/dL (12.9-16.9); Immature Granulocytes % 0.2 % (0-4); Lymphocytes # 3.8 K/mcL (0.6-4.6); Lymphocytes % 42.8 %; Mean Corpuscular HGB Conc 35.5 g/dL (31.6-35.5); Mean Corpuscular Volume 90.2 fL (83.0-100.0); Mean Platelet Volume 10.9 fL (9.4-12.4); Monocytes # 0.7 K/mcL (0.0-1.3); Monocytes % 8.3 %; Neutrophils # 3.8 K/mcL (1.6-8.9); Platelet Count 243 K/mcL (140-400); Red Blood Count 3.87 M/mcL (4.19-5.50); Red Cell Distribution Width 12.9 % (11.5-14.5); White Blood Count 8.9 K/mcL (4.3-11.1)
[2019-08-09 03:09] LABS: BUN/Creatinine Ratio 9 (6-26); Blood Urea Nitrogen 7 mg/dL (6-20); Calcium 8.5 mg/dL (8.6-10.3); Carbon Dioxide 27 mEq/L (23-29); Chloride 108 mEq/L (98-107); Glucose 88 mg/dL (70-105); Osmolality,Calculated 289 (280-300); Potassium 3.2 mEq/L (3.5-5.1); Sodium 141 mEq/L (136-145); eGFR For African Americans > 60 (> 60); eGFR For Non-African Americans > 60 (> 60)
[2019-08-09] MEDS ORDERED: Ipratropium/Albuterol Neb 3 ML IH PRN (03:20)
[2019-08-09 07:12] VITALS: BP 132/74
[2019-08-09] MEDS: Isosorbide MONOnitrate (24 HR) 60 MG TAB.ER.24H PO SCH (08:27)
[2019-08-09] MEDS: tiZANidine 4 MG TABLET PO SCH (08:27)
[2019-08-09] MEDS: Lisinopril 20 MG TABLET PO SCH (08:27)
[2019-08-09] MEDS: Aspirin 81 MG TAB.CHEW PO SCH (08:27)
[2019-08-09] MEDS: MetroNIDAZOLE 500 MG/100 ML 500 MG/100 ML BAG IVPB SCH (08:27)
[2019-08-09] MEDS ORDERED: Milk and Molasses Enema 200 ML RC ONE (09:12)
== END 2019-08-09 12:25 | disposition home or self-care (01) ==
LOC: 3ANU 08:44 → EMEROOARM 08:44 → SUATTDRO 18:00 → 3ANU 18:27
PROVIDERS: ADMIT Internal Medicine; ATTEND Student in an Organized Health Care Education/Training Program

== ENCOUNTER 2022-06-25 16:47 | Observation (INO) ==
[2022-06-25 17:24] LABS: Basophils % 0.3 %; Hematocrit 42.8 % (37.5-50.1); Hemoglobin 14.5 g/dL (12.9-16.9); Immature Granulocytes % 0.2 % (0-4); Lymphocytes % 9.7 %; Mean Corpuscular HGB Conc 33.9 g/dL (31.6-35.5); Mean Corpuscular Volume 88.6 fL (83.0-100.0); Mean Platelet Volume 9.7 fL (9.4-12.4); Monocytes # 0.3 K/mcL (0.0-1.3); Monocytes % 2.8 %; Neutrophils # 8.8 K/mcL (1.6-8.9); Platelet Count 285 K/mcL (140-400); Red Blood Count 4.83 M/mcL (4.19-5.50); Red Cell Distribution Width 13.3 % (11.5-14.5); White Blood Count 10.1 K/mcL (4.3-11.1)
[2022-06-25 17:44] LABS: BUN/Creatinine Ratio 14 (6-26); Blood Urea Nitrogen 12 mg/dL (6-20); Calcium 9.4 mg/dL (8.6-10.3); Carbon Dioxide 23 mEq/L (23-29); Chloride 107 mEq/L (98-107); Glucose 115 mg/dL (70-105); Osmolality,Calculated 291 (280-300); Potassium 4.2 mEq/L (3.5-5.1); Sodium 140 mEq/L (136-145); Troponin I < 0.03 ng/mL (< 0.04)
[2022-06-25] MEDS ORDERED: Aspirin 81 MG TAB.CHEW PO ONE (18:20)
[2022-06-25] MEDS ORDERED: tiZANidine 4 MG TABLET PO PRN (19:23)
[2022-06-25] MEDS ORDERED: Morphine Sulfate 2 MG/ML SYRINGE IVP PRN (19:50)
[2022-06-25] MEDS ORDERED: Iopamidol - 370 500 ML MLS IVP ONE (19:56)
[2022-06-25] MEDS ORDERED: Naloxone 0.4 MG/ML INJ IVP PRN (20:01)
[2022-06-25] MEDS ORDERED: Famotidine 20 MG/2 ML VIAL IVP ONE (20:02)
[2022-06-25] MEDS ORDERED: Prochlorperazine 10 MG/2 ML VIAL IVP ONE (20:05)
[2022-06-25] MEDS ORDERED: Acetaminophen 325 MG TABLET PO PRN (20:07)
[2022-06-25] MEDS: Budesonide/Formoterol 160/4.5 1 PUFF INH IH SCH (20:21)
[2022-06-25] MEDS ORDERED: Nitroglycerin 0.4 MG TAB.SUBL SL PRN (20:31)
[2022-06-25] MEDS ORDERED: *HR* Heparin 5,000 UNIT/ML VIAL IVP ONE (22:09)
[2022-06-25] MEDS ORDERED: *HR* Heparin 5,000 UNIT/ML VIAL IVP PRN ×2 (22:09)
[2022-06-25] MEDS ORDERED: Heparin 25,000UNIT/250ML 1/2NS 25,000 UNIT/250 ML IV.SOLN IVC SCH (22:15)
[2022-06-25] MEDS: Pregabalin 50 MG CAPSULE PO SCH (22:33)
[2022-06-26] MEDS ORDERED: Morphine Sulfate 2 MG/ML SYRINGE IVP PRN
[2022-06-26] MEDS ORDERED: Acetaminophen IV 500 MG/50 ML BAG IVPB ONE (00:56)
[2022-06-26 01:11] LABS: Influenza A PCR Negative (Negative); Influenza B PCR Negative (Negative); Resp. Syncytial Virus PCR Negative (Negative)
[2022-06-26 01:12] LABS: SARS-CoV-2 by PCR (In House) Negative (Negative)
[2022-06-26 03:47] LABS: Hematocrit 41.7 % (37.5-50.1); Hemoglobin 14.1 g/dL (12.9-16.9); Mean Corpuscular HGB Conc 33.8 g/dL (31.6-35.5); Mean Corpuscular Hemoglobin 29.8 pg (28.0-33.3); Mean Corpuscular Volume 88.2 fL (83.0-100.0); Mean Platelet Volume 9.9 fL (9.4-12.4); Platelet Count 291 K/mcL (140-400); Red Blood Count 4.73 M/mcL (4.19-5.50); Red Cell Distribution Width 13.4 % (11.5-14.5); White Blood Count 10.9 K/mcL (4.3-11.1)
[2022-06-26 03:52] LABS: Bilirubin,Urine Negative (Negative); Blood,Urine Negative (Negative); Clarity,Urine Clear (Clear); Color,Urine Yellow (Yellow); Glucose,Urine (UA) Normal (Normal); Ketones,Urine 100 mg/dL (Negative); Leukocyte Esterase,Urine Negative (Negative); Mucus,Urine Few per lpf (None-Few); Nitrite,Urine Negative (Negative); Protein,Urine 30 mg/dL (Neg-Trace); Specific Gravity,Urine > 1.030 (1.010-1.025); Squamous Epithelial Cell,Urine Few per hpf (None-Few); Urobilinogen,Urine Normal (Normal); WBC,Urine 0-3 per hpf (0-3)
[2022-06-26 03:53] LABS: Estimated Average Glucose 123 mg/dl; Hemoglobin A1C 5.9 %
[2022-06-26 04:01] LABS: Amphetamine Screen,Urine Negative ng/mL (Cutoff=1000); Barbiturate Screen,Urine Negative ng/mL (Cutoff=200); Benzodiazepines Screen,Urine Negative ng/mL (Cutoff=200); Cannabinoid Screen,Urine Negative ng/mL (Cutoff = 50); Cocaine Screen,Urine Negative ng/mL (Cutoff= 300); Opiate Screen,Urine Positive ng/mL (Cutoff=300); Phencyclidine Screen,Urine Negative ng/mL (Cutoff=25)
[2022-06-26 04:07] LABS: BUN/Creatinine Ratio 14 (6-26); Blood Urea Nitrogen 14 mg/dL (6-20); Calcium 9.6 mg/dL (8.6-10.3); Carbon Dioxide 21 mEq/L (23-29); Chloride 106 mEq/L (98-107); Chol/HDL Ratio 3.6 (0-4.9); Cholesterol 182 mg/dL (< 200); Glucose 93 mg/dL (70-105); HDL Cholesterol 50 mg/dL (40-59); LDL Cholesterol,Calculated 121 mg/dL (< 100); Magnesium 1.9 mg/dL (1.6-2.6); Osmolality,Calculated 288 (280-300); Potassium 3.5 mEq/L (3.5-5.1); Sodium 139 mEq/L (136-145); Triglycerides 54 mg/dL (< 150)
[2022-06-26 04:21] LABS: Thyroid Stimulating Hormone 0.804 mcIU/mL (0.340-5.600)
[2022-06-26] MEDS ORDERED: Regadenoson 0.4 MG/5 ML SYRINGE IVP ONE (06:26)
[2022-06-26 06:29] LABS: Heparin anti-factor XA UFH 0.63 IU/mL (0.30-0.70); INR 1.1; Prothrombin Time 12.3 Seconds (9.4-12.1)
[2022-06-26 06:32] LABS: Activated Partial Thrombo Time 97.2 Seconds (26.0-36.0)
[2022-06-26] MEDS: Budesonide/Formoterol 160/4.5 1 PUFF INH IH SCH (07:14)
[2022-06-26] MEDS ORDERED: lisinopriL 20 MG TABLET PO SCH (09:00)
[2022-06-26] MEDS ORDERED: Loratadine 10 MG TABLET PO SCH (09:00)
[2022-06-26] MEDS ORDERED: Aspirin Enteric Coated 81 MG Tablet PO SCH (09:00)
[2022-06-26] MEDS: Pregabalin 50 MG CAPSULE PO SCH (09:24)
[2022-06-26 10:33] VITALS: BP 127/80; PULSE 109; TEMP 98; O2SAT 98
== END 2022-06-26 15:50 | disposition home or self-care (01) ==
LOC: 3BNU 16:47 → EMEROOARM 16:47 → SUATTDRO 18:22 → 3BNU 19:00
PROVIDERS: ADMIT Internal Medicine; ATTEND Internal Medicine